=== PATIENT | male | born 1955 | race Caucasian/White ===

== ENCOUNTER 2020-04-16 09:02 | Outpatient (CLI) | payer MEDICARE, SELFPAY ==
[2020-04-16 09:49] LABS: Add Urine Microscopic? NO; Appearance Urine Clear (Clear); Bilirubin Urine Negative (Negative); Blood Urine Negative (Negative); Color Urine Yellow (Yellow); Glucose Urine UA Negative (Negative); Ketones Urine Negative (Negative); Leukocyte Esterase Ur Negative LEU/UL (NEGATIVE); Mucus Urine Rare /lpf; Nitrate Urine Negative (Negative); Protein Urine Negative (Negative); RBC Urine 0-2 /hpf (0-2); Specific Grav Ur 1.018 (1.001-1.035); Squamous Epithelial Cell Urine Rare /hpf (Few); Urobilinogen Urine Negative mg/dL (<2.0); WBC Urine 0-3 /hpf (0-3)
== END 2020-04-16 09:03 | disposition home or self-care (01) ==
PROVIDERS: PCP Family Medicine; Visit Provider Physician Assistant
DX: N39.0 Urinary tract infection, site not specified (principal)
CPT/HCPCS: 81003; 87086

== ENCOUNTER 2020-11-17 09:39 | Emergency (ER) | payer MEDICARE, SELFPAY ==
--- NOTE | ~2020-11-17 | XR_ITS ---
EXAMINATION: XR lumbar spine min 4V DATE: 11/17/2020 10:14 INDICATION: Worsening low back pain TECHNIQUE: Anteroposterior, lateral, and bilateral oblique views of the lumbar spine, and cone-down l ateral view of the lumbosacral junction were obtained. COMPARISON: 08/29/2017 FINDINGS: There is no fracture. There are 4 mm of stable anterolisthesis of L5 on S1. The vertebral b jannette heights are maintained. There is chronic severe loss of intervertebral disc space height at L2-3 and moderate loss of disc space height throughout the remainder of the lumbar spine. There is severe facet osteoarthritis of the lower lumbar spine. A neurostimulator device is implanted in the posterio r subcutaneous tissues on the right. Its leads appear to enter the central spinal canal at the level of L1. IMPRESSION: 1. Severe lumbar spondylosis without acute findings or significant interval change. Reviewed, dictated and finalized at location A. IMPRESSION: 1. Severe lumbar spondylosis without acute findings or significant interval rocío nge.
[2020-11-17 10:59] VITALS: BP 129/87; PULSE 99; RESP 20; TEMP 36.7; O2SAT 98
[2020-11-17 13:00] VITALS: BP 130/80; PULSE 90; RESP 18; O2SAT 100
[2020-11-17] MEDS: diazePAM INJ (*CRX) 10 MG/2 ML SYRINGE 5 MG IM (13:19)
[2020-11-17] MEDS: KETOROLAC (*BKC) 60 MG/2 ML VIAL IM (13:21)
--- NOTE | 2020-11-17 14:10 | ED.BACK ---
HPI - Back Pain/Injury General Chief Complaint: Back Pain/Injury Stated Complaint: back pain Time Seen by Provider: 11/17/20 12:17 Source: patient Mode of arrival: ambulatory Limitations: no limitations History of Present Illness HPI Narrative: This is a 65 year old male that presents to the ER for low back pain x 4 day. No known injury or trauma. Pain is worse with certain movement. Reports history of chronic back problems and multiple surgeries. He has a neurostimulator for pain. He has been taking tyhx-xxe-parnpcy medications as well as [place] for pain. Denies fever, saddle anesthesia, or bowel/bladder incontinence. Related Data Allergies Allergy/AdvReac Type Severity Reaction Status Date / Time No Known Allergies Allergy Unverified 05/13/20 10:16 Review of Systems Review of Systems: Narrative: CONSTITUTIONAL: Denies fever SKIN: Denies rash MUSCULOSKELETAL: Reports back pain, joint pain, and myalgia. NEUROLOGIC: Denies numbness, or weakness. All systems reviewed & are unremarkable except as noted in HPI and below PMFSH Past Medical History Medical History (Updated 11/17/20 @ 14:45 by Wilma Rocha PA-C) Chronic bilateral low back pain Essential hypertension IFG (impaired fasting glucose) Social History Social History (Updated 05/13/20 @ 10:18 by Rose Mary Norton) Smoking status: Never smoker Second hand tobacco smoke exposure: No Alcohol intake: never Substance use: never Substance use type: does not use Gender identity (if verbalized by the patient): Male Exam Narrative: Exam Narrative: GENERAL: Well-appearing, well-nourished, and in no acute distress. HEAD: Normocephalic, atraumatic. EYES: EOMI. CHEST: Clear to auscultation. No respiratory distress. No wheezes rales or rhonchi HEART: Regular rate and rhythm. No murmur heard. Normal peripheral pulses. EXTREMITIES: Normal range of motion. No edema or erythema. Strength equal in bilateral lower extremities (4/5). Normal DP pulses. Normal sensation SKIN: Warm, dry, no rash. NEURO: No focal deficits. Alert and oriented x3. PSYCH: Normal mood and affect Course Consultations Consultation #1: I spoke with his doctor, Dr. Calderon, who agrees with plan and will follow up in clinic. Date: 11/17/20 Time: 14:44 Vital Signs Vital signs: Vital Signs Temperature 98.1 F 11/17/20 10:59 Pulse Rate 99 11/17/20 10:59 Respiratory Rate 20 11/17/20 10:59 Blood Pressure 129/87 11/17/20 10:59 Pulse Oximetry 98 11/17/20 10:59 Temperature 98.1 F 11/17/20 10:59 Pulse Rate 90 11/17/20 13:00 Respiratory Rate 18 11/17/20 13:00 Blood Pressure 130/80 11/17/20 13:00 Pulse Oximetry 100 11/17/20 13:00 MDM - Back Pain/Injury MDM Narrative Medical decision making narrative: Patient presents to the emergency department for low back pain x4 days. He is afebrile and nontoxic-appearing. Vitals are stable. He is neurologically intact. No recent injury or trauma. Lumbar spine x-ray shows severe lumbar spondylosis without acute findings or significant interval change. Patient given dose of Toradol and Valium with improvement. He has an appointment to follow-up with his scene painter in 4 days. I spoke with his doctor, Dr. Calderon, who agrees with plan and will follow up in clinic. Patient is stable and felt appropriate for further outpatient evaluation. He was given warnings to return to the ER Imaging Data Radiologist's impression: ITS Impressions Lumbar Spine X-Ray 11/17/20 10:24 IMPRESSION: 1. Severe lumbar spondylosis without acute findings or significant interval change. Critical Care Time Critical Care Time Critical Care Time: No Discharge Plan Discharge Clinical Impression: Lumbar spondylosis Patient Disposition: Home, Self-Care Condition: Stable Instructions: Lumbar Radiculopathy (ED) Additional Instructions: Return to the ER if you experience fever, weakness, numbness, bowel/blad
== END 2020-11-17 15:00 | disposition home or self-care (01) ==
PROVIDERS: Emergency Provider Emergency Medicine; PCP Family Medicine
DX: M47.816 Spondylosis without myelopathy or radiculopathy, lumbar region (principal); I10 Essential (primary) hypertension
CPT/HCPCS: 72110; 96372; 99284; J1885; J3360

== ENCOUNTER 2021-10-08 08:34 | Outpatient (CLI) | payer MEDICARE, SELFPAY ==
--- NOTE | ~2021-10-08 | CT_ITS ---
EXAMINATION: CT lumbar spine wo con DATE: 10/08/2021 09:05 INDICATION: Worsening low back pain. TECHNIQUE: Computed tomography (CT) of the lumbar spine was performed without intravenous contrast. A utomated exposure control and iterative reconstruction technique were employed. The dose-length produ ct was 1156.89 mGy-cm. COMPARISON: Lumbar spine CT 08/29/2017 FINDINGS: There is 10 degrees dextroscoliosis of lumbar spine. There is 3 mm retrolisthesis of L2 on L3 and L3 on L4 and 4 mm anterolisthesis of L5 on S1. There is a chronic right L5 pars defect. Verteb ral body heights are normal. There is mildly decreased disc height at T12-L1 and L1-L2 and severely d ecreased disc height from L2-L3 through L5-S1 with endplate remodeling. The central spinal canal is d evelopmentally small in lumbar spine. Partially visualized are epidural electrodes. The following dis c levels are specifically discussed: L1-L2: The disc is bulging. There is mild right and severe left facet joint osteoarthritis. There is mild bilateral neural foraminal stenosis. There is mild central canal stenosis. L2-L3: The disc is bulging. There is mild bilateral facet joint osteoarthritis. There is mild right a nd moderate left neural foraminal stenosis. There is mild central canal stenosis. L3-L4: The disc is bulging. There is mild bilateral facet joint osteoarthritis. There is moderate jameel ateral neural foraminal stenosis. There is mild central canal stenosis. L4-L5: The disc is bulging. There is severe bilateral facet joint osteoarthritis. There is moderate b ilateral neural foraminal stenosis. There is mild central canal stenosis. L5-S1: The disc is bulging. There is severe bilateral facet joint osteoarthritis. There is moderate b ilateral neural foraminal stenosis. There is moderate central canal stenosis. IMPRESSION: 1. Severe lumbar spondylosis, mildly worsened from 08/29/2017. 2. Lumbar dextroscoliosis. 3. Chronic right-sided L5 pars defect. Reviewed, dictated and finalized at location A.
== END 2021-10-08 08:35 | disposition home or self-care (01) ==
PROVIDERS: PCP Family Medicine
DX: M99.83 Other biomechanical lesions of lumbar region (principal); M54.16 Radiculopathy, lumbar region; M47.816 Spondylosis without myelopathy or radiculopathy, lumbar region; M41.86 Other forms of scoliosis, lumbar region; M43.8X6 Other specified deforming dorsopathies, lumbar region
CPT/HCPCS: 72131

== ENCOUNTER 2022-03-18 10:30 | Outpatient (RCR) | payer MEDICARE, SELFPAY ==
--- NOTE | 2022-02-24 09:52 | PTOPEVAL1 ---
Assessment and note entered by Robert Perry, PT, DPT Evaluation Information Assessment Status Evaluation Diagnosis neck pain Onset 2-3 months Subjective Information Pt reports neck pain that starts at the base and side of his head. He states his pain is okay in the morning and gets worse as the day progresses. He reports numbness and tingling on the anterior portion of his L shoulder. He states he was given medication that helped for a week, but is not helping much now. He reports a long history of neck pain. Reported Pain Level Pain Score 4: Self Report Assessment PT Clinical Summary presents to therapy today for his initial evaluation with a diagnosis of neck pain. He reports numbness in his shoulder but denies radiating further than this. Today he demonstrates decreased active motion in all planes of motion and a forward head posture in sitting. He has decreased strength in his shoulder jameel as well as poor sitting posture. He also has decreased cervical spine mobility with assessment. Skilled physical therapy services are indicated to address the deficits noted above, to manage pain, and to return to baseline function. Plan of Care Interventions Hot Pack/Cold Pack,Manual Therapy,Neuro Re- education,Patient/Caregiver Educati,Therapeutic Activities,Therapeutic Exercise PT Services Indicated Yes Treatment Frequency and 1-2x/wk for 4 wks Duration These treatments will address the objective and functional deficits as defined above. The patient will be advanced safely and appropriately in order for the patient to progress towards his/her prior level of function. Additional exercises will be introduced and as well as a comprehensive home exercise program upon discharge, if needed, ?to ensure carryover of functional gains achieved in the clinic. This treatment plan has been reviewed and agreement upon by the patient.
--- NOTE | 2022-03-24 14:39 | PCPTNOTE ---
Patient did not show up for scheduled re-evaluation this date. Called and left voicemail for patient to reschedule if needed. If we do not hear from him within the next week he will be discharged.
--- NOTE | 2022-03-24 15:13 | PTOPDC ---
Assessment and note entered by Robert Perry, PT, DPT Evaluation Information Assessment Status Discharge - Pt Not Present Diagnosis neck pain Onset 2-3 months Subjective Information Pt did not show up for his re-evaluation this date . Called patient to follow up. He states he is not rescheduling, that he is doing fine. Assessment PT Clinical Summary completed 4 visits of skilled therapy from 02/24/22 to 03/18/22. He will be discharged at this time. If he needs to return at a later date he will need a new order. Plan of Care Treatment Frequency and to be discharged Duration
== END 2022-03-25 16:35 | disposition home or self-care (01) ==
LOC: ANHGOSHPT 10:30
PROVIDERS: PCP Family Medicine; Visit Provider Physician Assistant
DX: M54.2 Cervicalgia (principal); M62.838 Other muscle spasm
CPT/HCPCS: 97110; 97112; 97140; 97161; 99199

== ENCOUNTER 2022-04-07 08:20 | Outpatient (CLI) | payer MEDICARE, SELFPAY ==
--- NOTE | ~2022-04-07 | XR_ITS ---
EXAMINATION:XR cervical spine min 6V DATE: 04/07/2022 08:44 INDICATION: Neck pain TECHNIQUE: AP, lateral in neutral, flexion, extension, bilateral oblique, lateral swimmers and odonto id views of the cervical spine are provided. COMPARISON: 08/29/2017 FINDINGS: There are 2 mm of chronic anterolisthesis of C4 on C5. No laxity is present with flexion or extension. There is severe loss of intervertebral disc space height at C5-6, C6-7, and C7-T1. The od ontoid is intact. No fracture is identified. The vertebral body heights are normal. There is moderate to severe multilevel facet and uncovertebral joint osteoarthritis. There is moderate neuroforaminal stenosis on the left at C4-5, C5-6, and C6-7. Prevertebral soft tissues are normal. Small degenerativ e osteophytes project from the anterior endplates of multiple vertebral bodies. IMPRESSION: 1. Severe cervical spondylosis without acute findings or significant interval change. Reviewed, dictated and finalized at location B. CIATE ENTERTAINMENT EDITOR
== END 2022-04-07 08:21 | disposition home or self-care (01) ==
PROVIDERS: PCP Family Medicine; Visit Provider Physician Assistant
DX: M54.2 Cervicalgia (principal); M43.02 Spondylolysis, cervical region
CPT/HCPCS: 72052

== ENCOUNTER → 2022-06-29 10:19 | Outpatient (CLI) | payer MEDICARE, SELFPAY ==
--- NOTE | ~2022-06-29 | CT_ITS ---
EXAMINATION: CT cervical spine wo con DATE: 06/29/2022 11:11 INDICATION: Neck pain. TECHNIQUE: Computed tomography (CT) of the cervical spine was performed without intravenous contrast. Automated exposure control and iterative reconstruction technique were employed. The dose-length pro duct was 400.65 mGy-cm. COMPARISON: CT cervical spine 08/29/2017 FINDINGS: There is mild mucosal thickening in the paranasal sinuses. There is 6 degrees levocurvature of cervical spine. There is 2 mm anterolisthesis of C3 on C4 and C4 on C5. Vertebral body heights ar e normal. There is mildly decreased disc height at C4-C5 and severely decreased disc height from C5-C 6 through C7-T1. The following disc levels are specifically discussed: C2-C3: There is mild bilateral uncovertebral joint osteoarthritis. There is moderate right and mild l eft facet joint osteoarthritis. There is no neural foraminal stenosis. There is no central canal sten osis. C3-C4: There is mild bilateral uncovertebral joint osteoarthritis. There is moderate right and severe left facet joint osteoarthritis. There is mild bilateral neural foraminal stenosis. There is mild ce ntral canal stenosis. C4-C5: There is mild bilateral uncovertebral joint osteoarthritis. There is mild right and severe lef t facet joint osteoarthritis. There is moderate left neural foraminal stenosis. There is mild central canal stenosis. C5-C6: There is severe bilateral uncovertebral joint osteoarthritis. There is mild bilateral facet kierra int osteoarthritis. There is mild bilateral neural foraminal stenosis. There is mild central canal st enosis. C6-C7: There is severe bilateral uncovertebral joint osteoarthritis. There is mild bilateral facet kierra int osteoarthritis. There is mild bilateral neural foraminal stenosis. There is mild central canal st enosis. C7-T1: There is severe right and moderate left uncovertebral joint osteoarthritis. There is severe bi lateral facet joint osteoarthritis. There is moderate bilateral neural foraminal stenosis. There is m ild central canal stenosis. IMPRESSION: 1. Severe cervical spondylosis, stable from 08/29/2017. Reviewed, dictated and finalized at location A. RIOR SPECIALIST
== END ==
PROVIDERS: PCP Family Medicine
DX: M54.12 Radiculopathy, cervical region (principal); M99.81 Other biomechanical lesions of cervical region; M43.02 Spondylolysis, cervical region
CPT/HCPCS: 72125

== ENCOUNTER 2023-12-27 12:34 | Outpatient (CLI) | payer MEDICARE, SELFPAY ==
--- NOTE | 2023-12-27 14:15 | NEURO_ITS ---
Impression: # Complains of numbness of hands, left more than right. # Mild evolving sensory Carpal Tunnel Syndrome, left more than right. # Left median slowing proximally; Not diagnostic but consider the possibility of Pronator Teres Syndrome. # Needle/EMG exam not neurogenic. Nerve Conduction Studies Anti Sensory Summary Table Stim Site NR Peak (ms) P-T Amp (?V) Site1 Site2 Delta-P (ms) Dist (cm) Satya (m/s) Left Median Anti Sensory (2-3nd Digit) NO RESPONSE Wrist NR Wrist 2-3nd Digit 14.0 Wrist NR Wrist 2-3nd Digit 14.0 Right Median Anti Sensory (2-3nd Digit) Wrist 3.7 21.9 Wrist 2-3nd Digit 3.7 14.0 38 Wrist 5.3 18.7 Wrist 2-3nd Digit 3.7 14.0 38 Left Radial Anti Sensory (Base 1st Digit) Wrist 2.2 16.1 Wrist Base 1st Digit 2.2 0.0 Right Radial Anti Sensory (Base 1st Digit) Wrist 2.6 17.3 Wrist Base 1st Digit 2.6 0.0 Left Ulnar Anti Sensory (5th Digit) Wrist 2.6 21.6 Wrist 5th Digit 2.6 14.0 54 Right Ulnar Anti Sensory (5th Digit) Wrist 2.5 15.5 Wrist 5th Digit 2.5 14.0 56 Motor Summary Table Stim Site NR Onset (ms) O-P Amp (mV) Site1 Site2 Delta-0 (ms) Dist (cm) Satya (m/s) Left Median Motor (Abd Poll Brev) Wrist 3.5 1.4 Elbow Wrist 6.7 31.0 46 Elbow 10.2 1.3 Right Median Motor (Abd Poll Brev) Wrist 3.8 2.6 Elbow Wrist 6.1 31.0 51 Elbow 9.9 2.4 Left Ulnar Motor (Abd Dig Minimi) Wrist 3.0 4.3 A Elbow Wrist 5.6 31.0 55 A Elbow 8.6 3.1 Right Ulnar Motor (Abd Dig Minimi) Wrist 2.3 4.9 A Elbow Wrist 5.4 31.0 57 A Elbow 7.7 3.5 F Wave Studies NR F-Lat (ms) L-R F-Lat (ms) Left Median (Mrkrs) (Abd Poll Brev) 33.09 0.64 Right Median (Mrkrs) (Abd Poll Brev) 32.44 0.64 Left Ulnar (Mrkrs) (Abd Dig Min) 30.28 0.55 Right Ulnar (Mrkrs) (Abd Dig Min) 30.83 0.55 EMG Side Muscle Nerve Root Ins Act Fibs Amp Dur Recrt Comment Right 1stDorInt Ulnar C8-T1 Nml Nml Nml Nml Nml Right Ext Indicis Radial (Post Int) C7-8 Nml Nml Nml Nml Nml Right Ext Digitorum Radial (Post Int) C7-8 Nml Nml Nml Nml Nml Right BrachioRad Radial C5-6 Nml Nml Nml Nml Nml Right PronatorTeres Median C6-7 Nml Nml Nml Nml Nml Right Abd Poll Brev Median C8-T1 Nml Nml Nml Nml Nml Right ABD Dig Min Ulnar C8-T1 Nml Nml Nml Nml Nml Left 1stDorInt Ulnar C8-T1 Nml Nml Nml Nml Nml Left Ext Indicis Radial (Post Int) C7-8 Nml Nml Nml Nml Nml Left Ext Digitorum Radial (Post Int) C7-8 Nml Nml Nml Nml Nml Left BrachioRad Radial C5-6 Nml Nml Nml Nml Nml Left PronatorTeres Median C6-7 Nml Nml Nml Nml Nml Left Abd Poll Brev Median C8-T1 Nml Nml Nml Nml Nml Left ABD Dig Min Ulnar C8-T1 Nml Nml Nml Nml Nml MTDD
== END 2023-12-27 12:35 | disposition home or self-care (01) ==
LOC: ANHNEURO 12:39
PROVIDERS: PCP Family Medicine; Visit Provider Physician Assistant
DX: G56.03 Carpal tunnel syndrome, bilateral upper limbs (principal); R29.898 Other symptoms and signs involving the musculoskeletal system
CPT/HCPCS: 95886; 95911

== ENCOUNTER 2024-02-24 12:53 | Outpatient (CLI) | payer MEDICARE, SELFPAY ==
--- NOTE | 2024-02-24 13:02 | ECG_ITS ---
Test Date: 2024-02-24 13:24:48 Measurements Intervals Shushan Rate: 90 P: 60 MA: 144 QRS: 9 QRSD: 98 T: 57 QT: 355 QTc: 435 Interpretive Statements SINUS RHYTHM BASELINE ARTIFACT- I, II, III, AVR, AVL, AVF, V4 NORMAL ECG No previous ECG available for comparison Electronically Signed On 02-24-2024 13:28:54 CDT by Jules Hernández D.O.
== END 2024-02-24 12:54 | disposition home or self-care (01) ==
LOC: ANHSURGERY 12:56
PROVIDERS: PCP Family Medicine; Visit Provider Surgery
DX: Z01.818 Encounter for other preprocedural examination (principal); I10 Essential (primary) hypertension; K40.20 Bilateral inguinal hernia, without obstruction or gangrene, not specified as recurrent
CPT/HCPCS: 36415; 86850; 86900; 86901; 93005

== ENCOUNTER 2024-02-28 00:59 | Day surgery (SDC) | payer MEDICARE, SELFPAY ==
[2024-02-24 09:16] VITALS: BMI 27.9
--- NOTE | 2024-02-24 09:33 | PC.NURSE ---
Report to the Outpatient Waiting Room, entrance under the green pavilion located off [facility], at time ___10:30AM____ on date ____02/28/24___. Planned Procedure Time: ___12:30PM .? Time changes happen often and if your time is changed the preop area will call you the afternoon before. - You and your visitor will be asked to self-screen and do not enter if you have any COVID symptoms. Please call surgeon if you need to reschedule. - A mask is optional within the hospital at this time. Patients may have clear liquids (water, carbonated beverages, clear teas, apple juice) until 3 hours prior to surgery with a maximum of 20 ounces. - No food from midnight until time of surgery and no smoking. Take only the following medications with a SIP of water on the morning of surgery: AMLODIPINE DO NOT STOP ANY OF YOUR OTHER PRESCRIPTION MEDICATIONS PRIOR TO SURGERY EXCEPT THE FOLLOWING Medications to discontinue per physician NONE Date to take last dose Please no make-up, nail bulgarian, hairspray, perfume, deodorant, or body powder the day of surgery.? No jewelry (including any body piercings) or valuables the day of surgery, leave them at home.? Please take a shower or bath the night before, or the morning of, surgery with an antibacterial soap.? Wear comfortable, loose fitting clothing.? - Jewelry must be removed prior to entering the operating room.? Rings and piercings that are not removed may be cut off. - The hospital will not accept responsibility for valuables.? - Please leave all valuables, including medications, at home the day of surgery. If you are going home after surgery, a licensed local owner operator truck driver must drive you home.? - NO public transportation without another adult if you receive anesthesia. - We recommend that an adult stay with you for 24 hours following discharge. - We also recommend that you do not drive, make important decision, drink alcoholic beverages, or take any drugs that were not prescribed by your health care provider for at least 24 hours after your discharge time. Follow any additional instructions given to you from your surgeon. Telephone instructions given to ____PATIENT and asked if any additional questions and then verbalized understanding. Patient advised to call surgeon office or pre surgery nurse liaison [phone] if any additional questions.
[2024-02-28] VITALS (12 sets, daily range): BP systolic 110–125; BP diastolic 70–81; PULSE 86–102; RESP 12–18; TEMP 36–36.7; O2SAT 91–100; BMI 27.8
[2024-02-28] MEDS: KETOROLAC 15 MG/ML VIAL (*BKC) IV PUSH (11:11)
[2024-02-28] MEDS: ACETAMINOPHEN 500 MG TABLET 1000 MG PO (11:12)
[2024-02-28] MEDS: LACTATED RINGERS 1,000 ML 30 ML IV CONT ×2 (11:20→16:45)
--- NOTE | 2024-02-28 12:24 | WPDHPUPDATE1 ---
History and Physical Update Update Date/Time: 02/28/24 12:24 History and Physical has been reviewed, including an updated exam of the patient. There are NO changes in the patient's condition. Risks, benefits, and alternatives have been discussed and questions answered. Patient agrees to proceed with procedure.
--- NOTE | 2024-02-28 12:42 | P.PNAN_ITS ---
Anes - Initial Pre Proc Eval Procedure: Operation Date: 02/28/24 12:30 Proposed Procedures p Robotic Assisted Laparoscopic Bilateral Inguinal Hernia Repair with Mesh - Stalin Lopez MD s Open Umbilical Hernia Repair without Mesh - Stalin Lopez MD Date/Time: 02/28/24 12:42 Surgeon: Stalin Lopez MD Pre Op Diagnosis: Jin Reduc Ing Hernia, Sm Reduc Umb Hernia Patient Data Age: 68 Gender: M Height: 1.8 m Weight: 90.5 kg Last Vital Signs Temp 97.5 F L 02/28/24 11:00 Pulse 91 02/28/24 11:00 Resp 18 02/28/24 11:00 BP 114/81 02/28/24 11:00 Pulse Ox 97 02/28/24 11:00 Allergies Allergy/AdvReac Type Severity Reaction Status Date / Time No Known Allergies Allergy Verified 02/24/24 09:14 Home Medications Medication Instructions Recorded Confirmed Type amlodipine 5 mg tablet See Rx Instructions .Route 08/04/23 02/24/24 Rx .COMPLEX #90 tabs lisinopril 20 mg tablet See Rx Instructions .Route 08/04/23 02/24/24 Rx .COMPLEX #90 tabs Patient hx anesthesia problems: none Family hx anesthesia problems: none Results Review: All pre-operative results and documents have been reviewed as part of the pre- operative evaluation. [facility] Past Medical History Medical History Chronic bilateral low back pain Essential hypertension IFG (impaired fasting glucose) Surgical History Surgical History History of back surgery Social History Social History Smoking status: Never smoker Second hand tobacco smoke exposure: No Alcohol intake: never Substance use: never Substance use type: does not use Living arrangements: with family Additional living arrangements comments: [place] Occupation/Education: retired Gender identity (if verbalized by the patient): Male Spiritual care concerns: No Anes - Eval Final PreProcedure Day of Procedure 02/28/24 12:42 Patient weight: normal Heart: regular rate and rhythm Lungs: clear to auscultation Airway: Mallampati scale Neurological: alert and oriented Last oral intake: >/= 8 hours ASA classification: II Emergent: no Anesthetic plan: proceed Anesthesia type and monitoring: general ETT and standard monitoring Results Review: All pre-operative results and documents have been reviewed as part of the pre- operative evaluation. HTN, no cp or sob. Pt has back stim that is currently turned off. Informed Consent: The patient's anesthetic plan and its attendant risks and benefits were discussed with the patient/family/POA. Questions were solicited and answers provided to the satisfaction of the patient/family/POA.
[2024-02-28] MEDS: ceFAZolin 2 GM/D5W 50 ML 2 GM/50 ML BAG IVPB (12:55)
[2024-02-28] MEDS: LIDO 1%/EPINEPHRINE 1:100,000 50 ML VIAL 30 ML INFILTRATE (14:09)
[2024-02-28] MEDS: BUPivacaine HCL 0.5% PF 30 ML VIAL INFILTRATE (14:10)
--- NOTE | 2024-02-28 16:43 | W.PM.PROC2 ---
Procedure Note - Detailed Date of Procedure 02/28/24 Pre-op Diagnosis Jin Reduc Ing Hernia, Sm Reduc Umb Hernia Post-op Diagnosis Same Procedure Performed Robotic assisted laparoscopic bilateral inguinal hernia repairs with Bard 3D mid weight mesh. Open umbilical hernia repair without mesh. Surgeon Stalin Lopez MD Life Claims Examiner Lucho Choi, [place] Anesthesia General Indications Patient is a 68-year-old gentleman who presented with complaints of a bulge in the left groin region. On examination had to be the reduced total moderately large left inguinal hernia. Also on exam he had an asymptomatic right inguinal hernia only with Valsalva. He also had other small reducible umbilical hernia. He presents now for robotic assisted laparoscopic bilateral inguinal hernia repairs with mesh and an open umbilical hernia repair without mesh. Findings Patient on a small reducible umbilical hernia. Defect was 1 cm in diameter. This was closed primarily with suture. The out bilateral direct inguinal hernias without any incarcerated contents. The patient had a large prostate gland which impeded the placement of a standard Estrada catheter. A Coude urinary catheter had to be placed to adequately decompress the bladder. Due to the difficulty in passing the urinary catheter and the trauma associated with the passing of the catheter there was hematuria initially noted and it persisted with significant hematuria at the end of the procedure. For this reason the Estrada catheter was left in place overnight and the patient was admitted for extended outpatient recovery overnight to make sure that he would not go home and how bladder outlet obstruction from clot in his bladder. Description of Procedure After informed consent was obtained the patient was brought to the operating room was placed in supine position and general endotracheal anesthesia was administered. The patient had a clinical history of enlarged prostate gland due to having significant nocturia. He had get up 3-4 times a night to go urinate. For this reason a urinary catheter was placed to make sure the bladder was decompressed during the surgery. There is difficulty in passing a Estrada catheter and so eventually a coude catheter had to be placed. Due to the difficulty in placing the coude catheter there was significant hematuria once the catheter was placed. A time-out was then performed identifying the patient as well as the procedure to be performed. He was given preoperative IV antibiotics. I then entered the abdomen and the left upper quadrant utilizing a 10 mm Optiview port. Once inside the abdomen insufflated to act a pneumoperitoneum 15 mm Hg SaO2. There were no adhesions to obscure my view of the pelvis on the groin regions. The patient was in placed and 15 degree Trendelenburg position with the head down. This allowed the bowel to fall away from the inguinal regions and the pelvis. I then placed additional 8 mm robotic trocar ports across the mid abdomen. The umbilical trocar port was placed to the patient's small umbilical hernia defect. I could easily see that there were bilateral large direct inguinal hernias without incarcerated contents. The Cardiostrong robot was then brought to the patient's bedside and docked to the patient's right side. The robotic arms were then attached to the robotic ports. Robotic instruments were then advanced into the abdomen without difficulty under direct visualization. I then scrubbed out of the procedure and sat down at the console to perform the dissection robotically. A preperitoneal flap was then made across the lower abdominal region extending from the right anterior superior iliac spine to the left anterior superior iliac spine. And then continued my dissection of the preperitoneal plane dividing the right and left median umbilical ligaments to take down the bladder. The peritoneal flap was then bisected down to the pubic tubercle bilaterally. There is no evidence
[2024-02-28] MEDS: fentaNYL CITRATE INJ (*CRX) 100 MCG/2 ML VIAL 25 MCG IV PUSH ×5 (17:32→17:51)
[2024-02-28] MEDS: LACTATED RINGERS 1,000 ML 120 ML IV CONT (18:32)
[2024-02-28] MEDS: TAMSULOSIN HCL 0.4 MG CAPSULE PO (18:33)
[2024-02-28] MEDS: HYDROcodone/acetaminophen (*CRX) 5-325 MG TABLET 1 TAB PO (18:41)
--- NOTE | 2024-02-28 18:45 | PC.NURSE ---
This patient, Richard Schmid, was admitted to [facility] Surg Room 331-02. Patient/family oriented to hospital policies and general routines including ID bracelet, bed and alarms, visiting hours, pain management, procedures, bathroom and other care routines, personal items, smoking policy, room service/diet, and visiting hours. Information on how to activate the Rapid Response Team has been discussed. Patient/Family are encouraged to report perceived risks to care and to ask questions if they do not understand what they are told or what they should do.
--- NOTE | 2024-02-28 18:50 | ADMGEN ---
This patient, Richard Schmid, was admitted to [facility] Surg Room 331-02. Patient/family oriented to hospital policies and general routines including ID bracelet, bed and alarms, visiting hours, pain management, procedures, bathroom and other care routines, personal items, smoking policy, room service/diet, and visiting hours. Information on how to activate the Rapid Response Team has been discussed. Patient/Family are encouraged to report perceived risks to care and to ask questions if they do not understand what they are told or what they should do.
[2024-02-29] VITALS: BP 107/70; PULSE 86; RESP 18; TEMP 36.9; O2SAT 93
[2024-02-29 03:10] VITALS: BP 100/65; PULSE 89; RESP 18; TEMP 37; O2SAT 95
[2024-02-29 08:36] VITALS: BP 108/67; PULSE 84; RESP 18; TEMP 36.8; O2SAT 96
[2024-02-29] MEDS: amLODIPine BESYLATE 5 MG TABLET BY MOUTH (08:58)
[2024-02-29] MEDS: TAMSULOSIN HCL 0.4 MG CAPSULE PO (08:59)
[2024-02-29] MEDS: lisinopriL 20 MG TABLET BY MOUTH (08:59)
[2024-02-29] MEDS: HYDROcodone/acetaminophen (*CRX) 5-325 MG TABLET 1 TAB PO (09:00)
--- NOTE | 2024-02-29 11:05 | PM.PNGS ---
Progress Note: A&P Assessment and Plan (1) Bilateral inguinal hernia without obstruction or gangrene: Qualifiers: Recurrence: non-recurrent Qualified Code(s): K40.20 - Bilateral inguinal hernia, without obstruction or gangrene, not specified as recurrent Code(s): K40.20 - Bilateral inguinal hernia, without obstruction or gangrene, not specified as recurrent Status: Acute Assessment and Plan: S/p robotic assisted laparoscopic bilateral inguinal hernia repair with mesh. He was kept for observation overnight due to hematuria as mentioned below. Tolerating a regular diet. Encouraged getting up to chair and ambulating in the halls today. (2) Umbilical hernia without mention of obstruction or gangrene: Code(s): K42.9 - Umbilical hernia without obstruction or gangrene Status: Acute Assessment and Plan: Small umbilical hernia closed primarily with suture (3) Enlarged prostate: Code(s): N40.0 - Benign prostatic hyperplasia without lower urinary tract symptoms Status: Acute Assessment and Plan: Large prostate with difficulty placing his urinary catheter during surgery yesterday. They were able to get a Coude catheter inserted, but he had hematuria after placement due to the trauma of catheter placement. Catheter kept in place overnight. Started on tamsulosin. Since he is still having hematuria today, we will consult Urology for further recommendations. (4) Hematuria: Code(s): R31.9 - Hematuria, unspecified Status: Acute Assessment and Plan: Continue indwelling urinary catheter. Consult Urology. Plan I have discussed the patient's case and plan of care with Dr. Lopez. Subjective Subjective Date/Time Seen: 02/29/24 11:05 Post Op day: 1 (Robotic assisted laparoscopic bilateral inguinal hernia repairs with Bard 3D mid weight mesh) Patient reports: tolerating a regular diet Interval history: Patient in extended stay recovery postop laparoscopic bilateral inguinal hernia repair, umbilical hernia repair due to hematuria. He had a coude catheter placed during surgery, which was difficult. He had hematuria that persisted even following the case, therefore the catheter was left in place and he was kept overnight for monitoring. This morning, there is still a fair amount of blood in the urine with small clots in the tubing. Exam Const: General: comfortable and no acute distress Orientation/consciousness: patient oriented x3 GI: Inspection: non-distended and incision (incisions dry and glue intact) GI Palp: Yes Soft to palpation and Yes Tenderness to palpation present (GI) (incisional) Auscultation: Hypoactive bowel sounds present : Penis: Yes normal penis Scrotum: scrotum normal (scrotal support in place) Urinary Catheter: Urinary Catheter: patent and draining and urine red Objective Data Vital Signs Vital Signs: Vital Signs - 24 hr 02/28/24 16:45 02/28/24 17:00 02/28/24 17:15 Temperature 97.3 F L Pulse Rate 102 H 94 86 Respiratory Rate 12 14 Blood Pressure 125/75 117/77 Pulse Oximetry 100 94 100 Oxygen Delivery Simple Face Mask Simple Face Mask Simple Face Mask Oxygen Flow Rate 8 8 8 02/28/24 17:30 02/28/24 17:45 02/28/24 18:00 Temperature 97.4 F L Pulse Rate 88 94 93 Respiratory Rate 14 15 16 Blood Pressure 124/79 116/79 117/76 Pulse Oximetry 96 94 94 Oxygen Delivery Room Air Room Air Room Air Oxygen Flow Rate 02/28/24 18:10 02/28/24 18:30 02/28/24 18:45 Temperature 96.8 F L 96.9 F L Pulse Rate 92 91 87 Respiratory Rate 15 16 18 Blood Pressure 114/76 110/72 110/70 Pulse Oximetry 93 93 91 Oxygen Delivery Room Air Oxygen Flow Rate 02/28/24 19:15 02/28/24 20:15 02/29/24 00:00 Temperature 98.1 F 97.6 F 98.5 F Pulse Rate 90 89 86 Respiratory Rate 18 18 18 Blood Pressure 112/76 125/78 107/70 Pulse Oximetry 93 94 93 Oxygen Delivery Oxygen Flow Rate 02/29/24 03:10 02/29/24 08:36 02/29/24 09
--- NOTE | 2024-02-29 12:37 | WPDURCON ---
Assessment and Plan Assessment and plan (1) Hematuria: Code(s): R31.9 - Hematuria, unspecified Status: Acute Assessment and Plan: Likely secondary to trauma from Estrada catheterization. Urine is significantly cleared at this time. Okay for Estrada catheter removal and will ensure he is voiding well following. (2) Enlarged prostate: Code(s): N40.0 - Benign prostatic hyperplasia without lower urinary tract symptoms Status: Acute Assessment and Plan: Resulting in difficult Estrada catheter placement. He has been started on tamsulosin and will continue this following discharge. Will arrange outpatient follow-up in several weeks to reassess symptoms and check PVR. Urology Consult Note HPI Date Seen: 02/29/24 Requesting Physician: Stalin Lopez MD Primary Care Provider: Zach Rosen MD Consult Narrative Narrative: Richard Schmid is a 68 year old male who underwent robotic assisted laparoscopic bilateral inguinal hernia repair on 02/28/2024. He is being seen in consultation for hematuria. At the start of surgery, a Estrada catheter was placed to ensure bladder was decompressed during surgery. It was noted that there was difficulty passing a Estrada catheter due to an enlarged prostate, therefore was transitioned to a coude catheter which was able to be successfully placed. He was noted to have hematuria following Estrada placement secondary to trauma from catheter attempt. Catheter was continued overnight and today patient noted to have persistent hematuria. He was started on tamsulosin. At the time of my evaluation, the patient's catheter is draining freely with return of light pink tinged urine. He denies suprapubic pain, pressure, fullness, pelvic pain. Prior to surgery, the patient reports that he has had nocturia but otherwise no significant lower urinary tract symptoms. He has not seen a urologist in the past for evaluation of BPH and has not been on medications. He has no concerns at this time. Review of Systems Review of Systems: All systems reviewed & are unremarkable except as noted in HPI and below PMFSH Past Medical History Medical History Chronic bilateral low back pain Essential hypertension IFG (impaired fasting glucose) Surgical History Surgical History History of back surgery Social History Social History Smoking status: Never smoker Second hand tobacco smoke exposure: No Alcohol intake: never Substance use: never Substance use type: does not use Do You Feel Safe in your Home?: Yes Lack of Transportation: No Lack of Food: Never True Current Housing: I Have Housing Concerned About Future Housing: No Difficulty Paying Gas/Electric Bills: No Difficulty Paying for Meds: No Currently Unemployed: No Education: Bachelor's Degree Difficulty w/ Childcare or Family Care: No Living arrangements: with family Additional living arrangements comments: [employer] Occupation/Education: retired Gender identity (if verbalized by the patient): Male Spiritual care concerns: No Meds Home Medications and Allergies Home Medications Medication Instructions Recorded Confirmed Type amlodipine 5 mg tablet See Rx Instructions .Route 08/04/23 02/24/24 Rx .COMPLEX #90 tabs lisinopril 20 mg tablet See Rx Instructions .Route 08/04/23 02/24/24 Rx .COMPLEX #90 tabs Allergies Allergy/AdvReac Type Severity Reaction Status Date / Time No Known Allergies Allergy Verified 02/24/24 09:14 Vital Signs Vital Signs - 24 hr 02/28/24 16:45 02/28/24 17:00 02/28/24 17:15 Temperature 97.3 F L Pulse Rate 102 H 94 86 Respiratory Rate 12 14 Blood Pressure 125/75 117/77 Pulse Oximetry 100 94 100 Oxygen Delivery Simple Face Mask Simple Face Mask Simple
--- NOTE | 2024-02-29 15:35 | PM.DS ---
DS: Admitting Diagnosis Discharge Date 02/29/2024 Admitting Diagnosis Umbilical hernia Bilateral inguinal hernias DS: Discharge Diagnosis Discharge Diagnosis (1) Bilateral inguinal hernia without obstruction or gangrene: Qualifiers: Recurrence: non-recurrent Qualified Code(s): K40.20 - Bilateral inguinal hernia, without obstruction or gangrene, not specified as recurrent Code(s): K40.20 - Bilateral inguinal hernia, without obstruction or gangrene, not specified as recurrent Status: Acute (2) Umbilical hernia without mention of obstruction or gangrene: Code(s): K42.9 - Umbilical hernia without obstruction or gangrene Status: Acute (3) Enlarged prostate: Code(s): N40.0 - Benign prostatic hyperplasia without lower urinary tract symptoms Status: Acute (4) Hematuria: Code(s): R31.9 - Hematuria, unspecified Status: Acute DS: Summary Hospital Course Reason for hospitalization: This is a 68-year-old man who presented with complaints of a bulge in his left groin region as an outpatient. He was found to have bilateral inguinal hernias and a small reducible umbilical hernia on exam. He presented yesterday for a robotic assisted laparoscopic bilateral inguinal hernia repair with mesh and an open umbilical hernia repair without mesh. Hospital Course: Patient underwent robotic assisted laparoscopic bilateral inguinal hernia repairs with mesh, open umbilical hernia repair without mesh on 02/28/[address] Huang. When attempting indwelling urinary catheter placement for surgery, he was found to have a large prostate gland which impeded placement of a standard Estrada catheter. The Mili ventrally able to place a coude urinary catheter to decompress the bladder, although due to the difficulty of passing the catheter and trauma associated with this, he had hematuria initially after placement that persisted throughout surgery. Therefore, the q.day urinary catheter was left in place and he was admitted for extended outpatient recovery overnight to make sure that he would not go home and have bladder outlet obstruction from clots in his bladder. This morning, the patient was tolerating a diet and able to tolerate activity. He continued to have hematuria this morning, and urology was consulted for their recommendations. He was started on Flomax and Levsin p.r.n. for bladder spasms. Urology removed his urinary catheter for a voiding trial. Patient was able to void following catheter removal and is stable for discharge this afternoon. He will be discharged home on Flomax with outpatient follow-up with Urology. He will also follow up as scheduled with Dr. Huang. Status at Discharge Functional status at discharge: independent ambulation Overall status at discharge: patient is progressing back to baseline Time Spent with Patient Time attestation: Total time spent providing and/or coordinating discharge services: Time spent: Greater than 30 minutes DS: Data Procedures/Treatments: Procedures Operation Date: 02/28/24 12:30 Actual Procedure Side Surgeon p Robotic Assisted Laparoscopic Bilateral Inguinal Hernia Repair with Mesh Bilateral Stalin Huang MD s Open Umbilical Hernia Repair without Mesh Not Applicable Stalin Huang MD Discharge Plan Discharge Patient Disposition: Home, Self-Care Discharge Instructions: DISCHARGE INSTRUCTIONS FOR DR. HUANG May shower in 24 hours, no soaking in bath x 2weeks. Wear your abdominal binder when up in the chair and with activity. May remove the abdominal binder at night while at rest and to shower. Wear scrotal support for at least the first 48 hours No lifting more than 10 lbs until instructed differently by your surgeon in follow-up Walk at least three times daily. Stairs are okay. No fast/jerky movements No driving for 3 days or while taking narcotic pain medication Take Tylenol and/or Ibuprofen as needed for pain. Narcotic pain medication w
[2024-02-29 16:05] VITALS: BP 130/56; PULSE 88; RESP 18; TEMP 36.8; O2SAT 100
== END 2024-02-29 16:40 | disposition home or self-care (01) ==
LOC: ANHSURGERY 10:30 → ANH3MEDSUR 18:21
PROVIDERS: PCP Family Medicine; Visit Provider Surgery
PROC: 8E0Y4CZ Robotic Assisted Procedure of Lower Extremity, Percutaneous Endoscopic Approach (ICD-10-PCS; CPT 49650; principal; 2024-02-28 12:30)
PROC: (CPT 49591; 2024-02-28 12:30)
DX: K40.20 Bilateral inguinal hernia, without obstruction or gangrene, not specified as recurrent (principal); K42.9 Umbilical hernia without obstruction or gangrene; I10 Essential (primary) hypertension; N40.0 Benign prostatic hyperplasia without lower urinary tract symptoms; R31.9 Hematuria, unspecified; M54.50 Low back pain, unspecified; G89.29 Other chronic pain; G89.18 Other acute postprocedural pain; Z98.890 Other specified postprocedural states; Z98.1 Arthrodesis status
CPT/HCPCS: 49591; 49650; S2900; 36415; 86850; 86900; 86901; 93005; A9270; C1781; J0690; J1100; J1171; J1885; J2003; J2004; J2250; J2405; J2704; J3010; J7120

== ENCOUNTER 2024-03-01 16:27 | Emergency (ER) | payer MEDICARE, SELFPAY ==
--- NOTE | ~2024-03-01 | CT_ITS ---
EXAMINATION: CT abdomen pelvis w con DATE: 03/01/2024 19:29 INDICATION: Abdominal pain. TECHNIQUE: Computed tomography (CT) of the abdomen and pelvis was performed with 100 mL Omnipaque 350 intravenous contrast. Automated exposure control and iterative reconstruction technique were employe d. The dose-length product was 574.89 mGy-cm. COMPARISON: CT abdomen and pelvis 11/13/2012 FINDINGS: The visualized portions of the lung bases demonstrate mild atelectasis. No pleural effusion . The heart size is normal. No pericardial effusion. There are coronary artery calcifications. The li benjamin, gallbladder, spleen, pancreas, adrenal glands, and left kidney are normal. There is a 10 mm cyst in right kidney. The prostate is moderately enlarged. There are no dilated loops of bowel. The appen delmis is normal. There are no pathologically enlarged lymph nodes. There is no free intraperitoneal flu id. There are changes of bilateral inguinal hernia repairs. There is free intraperitoneal gas and gas in the body wall, consistent with recent surgery. There is gas in the bladder lumen, likely from rec ent instrumentation. Epidural electrodes are noted. There is mild thoracic spondylosis and severe lum bar spondylosis. IMPRESSION: 1. Changes of bilateral inguinal hernia repairs. Reviewed, dictated and finalized at location A.
[2024-03-01 16:35] VITALS: BP 150/93; PULSE 111; RESP 18; TEMP 36.6; O2SAT 95
[2024-03-01 16:50] LABS: Basophils Percent Auto 0.4 % (0.2-1.2); Eosinophils Percent Auto 0.1 % (0-4.4); Hematocrit 46.7 % (42.0-52.0); Hemoglobin 16.5 g/dL (14.0-18.0); Immature Granulocyte Absolute 0.03 K/mm3 (0.00-0.031); Immature Granulocyte Percent A 0.3 % (0-0.5); Lymphocytes Absolute Auto 0.92 K/mm3 (0.9-3.2); Lymphocytes Percent Auto 8.1 % (18.3-44.2); Mean Corpuscular HGB Conc 35.3 g/dl (32-36); Mean Corpuscular Volume 87.6 fl (80-100); Mean Platelet Volume 8.8 fl (7.4-10.4); Monocytes Absolute Auto 0.6 K/mm3 (0.1-0.6); Monocytes Percent Auto 5.2 % (2.6-8.5); Neutrophils Absolute Auto 9.7 K/mm3 (1.3-6.7); Neutrophils Percent Auto 85.9 % (45.5-73.1); Platelet Count Result 258 k/mm3 (150-375); Red Blood Count 5.33 M/mm3 (4.6-6.20); Red Cell Distribution Width 13.2 % (11.5-14.5); White Blood Count 11.3 K/mm3 (4.5-10.0)
[2024-03-01 17:02] LABS: Alanine Aminotransferase 20 U/L (6-50); Albumin Level 4.5 g/dL (3.5-5.1); Alkaline Phosphatase 56 U/L (38-126); Anion Gap 10 mmol/L (4-12); Aspartate Amino Transferase 28 U/L (17-59); Bilirubin,Total 0.9 mg/dL (0.2-1.3); Blood Urea Nitrogen 22 mg/dL (9-20); Calcium 8.7 mg/dL (8.4-10.2); Carbon Dioxide 23 mmol/L (22-30); Chloride 105 mmol/L (98-107); Estimated CRCL calculation 81 ml/min; Estimated Glomerular Filt Rate > 60; Glucose 152 mg/dL (65-110); Lipase 84 U/L (23-300); Potassium 3.7 mmol/L (3.4-5.0); Sodium 138 mmol/L (137-145)
--- NOTE | 2024-03-01 18:56 | ED.ABDPAIN ---
HPI - Abdominal Pain General Chief Complaint: Abdominal Pain <NICHOLE Coles Last Filed: 03/01/24 19:04> Stated Complaint: abd. pain, vomiting, post hernia repair <NICHOLE Coles Last Filed: 03/01/24 19:04> Time Seen by Provider: 03/01/24 18:56 <NICHOLE Coles Last Filed: 03/01/24 19:04> Focused HPI: Patient is a 68 y/o male who presents to the ED with c/o mid abdominal pain. Patient reports he had umbilical and jameel inguinal hernia repair done on Tuesday with Dr. Lopez. States today he began having more severe pain and cramping throughout his mid abdomen. Began vomiting and was unable to keep down food or drink. Was sent here for further evaluation. Pain is slightly improved currently. Patient reports intermittent chills, diaphoresis, shakiness, but denies known fever. States he has not had a BM since the surgery. 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 GENERAL: Tearful-appearing, well-nourished, and in no acute distress. HEAD: Normocephalic, atraumatic. CHEST: Clear to auscultation. ?No respiratory distress. HEART: Regular rate and rhythm.? ABD: Soft, no significant distension. Diffuse tenderness throughout. Mildly hypoactive BS. NEURO: ?Alert and oriented x3. Patient screened in triage and initial orders placed.? ?Additional care and disposition to be based upon?diagnostic testing and treatment. <NICHOLE Coles Last Filed: 03/01/24 19:04> Source: patient <NICHOLE Coles Last Filed: 03/01/24 19:04> Mode of arrival: ambulatory <NICHOLE Coles Last Filed: 03/01/24 19:04> Limitations: no limitations <NICHOLE Coles Last Filed: 03/01/24 19:04> History of Present Illness HPI narrative: Patient is a 68-year-old gentleman who presents emergency department with chief complaint of abdominal discomfort. The patient reports that he had a robotic hernia repair on Tuesday by Dr. Lopez patient states he has had some cramping in his abdomen reports that he has had some nausea and vomiting as well. The patient reports started better since he has been in the emergency department <Clinton Irizarry MD - Last Filed: 03/01/24 21:26> Related Data Allergies/Adverse Reactions: Allergies Allergy/AdvReac Type Severity Reaction Status Date / Time No Known Allergies Allergy Verified 03/01/24 16:28 <Jenae Olson PA-C - Last Filed: 03/01/24 19:04> Review of Systems Review of Systems: A 10 system review of systems was completed on the patient and is negative except for what is stated in the HPI. Nursing and ancillary documentation was reviewed. <Clinton Irizarry MD - Last Filed: 03/01/24 21:26> PMFSH Past Medical History Medical History: Medical History Chronic bilateral low back pain Essential hypertension IFG (impaired fasting glucose) <Jenae Olson PA-C - Last Filed: 03/01/24 19:04> Surgical History Surgical History: Surgical History History of back surgery <Jenae Olson PA-C - Last Filed: 03/01/24 19:04> Social History Social History: Social History Smoking status: Never smoker Second hand tobacco smoke exposure: No Alcohol intake: never Substance use: never Substance use type: does not use Do You Feel Safe in your Home?: Yes Lack of Transportation: No Lack of Food: Never True Current Housing: I Have Housing Concerned About Future Housing: No Difficulty Paying Gas/Electric Bills: No Difficulty Paying for Meds: No Currently Unemployed: No Education: Bachelor's Degree Difficulty w/ Childcare or Family Care: No Living arrangements: with family Additional living arrangements
[2024-03-01] MEDS: HYDROcodone/acetaminophen (*CRX) 5-325 MG TABLET 1 TAB PO (19:08)
[2024-03-01 19:21] LABS: Lactic Acid Reflex 1.6 mmol/L (0.7-2.0)
[2024-03-01 19:50] VITALS: BP 137/87; PULSE 115; RESP 18; O2SAT 96
[2024-03-01 21:06] LABS: Add Urine Microscopic? YES; Appearance Urine Clear (Clear); Bacteria Urine None Seen /hpf; Bilirubin Urine Negative (Negative); Blood Urine 2+ (Negative); Color Urine Yellow (Yellow); Glucose Urine UA Negative (Negative); Ketones Urine 2+ mg/dL (Negative); Leukocyte Esterase Ur Negative LEU/UL (Negative); Nitrate Urine Negative (Negative); Non Pathogenic Casts 0-2; Protein Urine 1+ mg/dL (Negative); RBC Urine 21-50 /hpf (0-2); Specific Grav Ur > 1.045 (1.001-1.035); Squamous Epithelial Cell Urine None Seen /hpf (Few); Urobilinogen Urine 0.2 mg/dL (<2.0); WBC Urine 0-5 /hpf (0-3); pH Urine 7.5 (5.0-9.0)
[2024-03-01] MEDS: MAGNESIUM HYDROXIDE SUSP 30 ML UDC PO (21:16)
[2024-03-01 21:24] VITALS: BP 128/89; PULSE 81; RESP 18; O2SAT 96
== END 2024-03-01 21:36 | disposition home or self-care (01) ==
PROVIDERS: Emergency Medicine; Physician Assistant; Emergency Provider Emergency Medicine; PCP Family Medicine
DX: G89.18 Other acute postprocedural pain (principal); R10.9 Unspecified abdominal pain; I10 Essential (primary) hypertension; Z79.899 Other long term (current) drug therapy
CPT/HCPCS: 36415; 74177; 80053; 81001; 83605; 83690; 85025; 99284; A9270; Q9967

== ENCOUNTER 2024-07-07 12:13 | Emergency (ER) | payer MEDICARE, SELFPAY ==
--- NOTE | ~2024-07-07 | XR_ITS ---
EXAMINATION: XR knee RT 3V DATE: 07/07/2024 12:38 INDICATION: Right knee pain. TECHNIQUE: 3 views of right knee were obtained. COMPARISON: None. FINDINGS: Alignment is normal. No fracture. There is mild tricompartmental osteoarthritis. There is a moderate-sized knee joint effusion. IMPRESSION: 1. Mild right knee osteoarthritis. 2. Moderate-sized knee joint effusion. Reviewed, dictated and finalized at location A. UE TECHNOLOGIST
[2024-07-07 12:14] VITALS: BP 142/86; PULSE 101; RESP 20; TEMP 37; O2SAT 97
--- OUTSIDE RECORDS SUMMARY | 2024-07-07 12:41 | XMS_ITS ---
Author Organization [facility] [place] Address [address] [facility] [place] [address] Care Team Providers Care Dental Technologist Name Role Phone Rudolph Calderon Unavailable [phone] ALLERGIES No Known Allergies REASON FOR VISIT [facility]/ Re-referral Visit (last seen 07/12/22) MEDICATIONS Medication SIG (Take, Route, Frequency, Duration) Notes Start Date End Date Status Nitrofurantoin Monohyd Macro 100 MG TAKE 1 CAPSULE BY MOUTH EVERY 12 HOURS FOR 7 DAYS Oral for 7 Days Not-Taking Neurontin 300 MG 1 capsule Orally Killian e one PO bedtime daily for 90 days Not-Taking Lisinopril 10 MG 1 tablet Orally Once a day Active HYDROcodone-Acetaminophen 5-325 MG 1 tablet Orally q 6-8 hours PRN POST-procedural pain for 10 days 05/05/2021 Not-Taking Gabapentin 300 MG 1 capsule Orally daily, HS for 30 day(s) 04/03/2020 Not-Taking amLODIPine Besylate Active PROBLEMS Problem Type ICD Code Onset Dates Problem Status W/U Status Risk SNOMED Code Notes Problem Carpal tunnel syndrome on both sides (G56.03) Active confirmed Carpal tunnel syndrome ([id number]) VITAL SIGNS Temperature 98.4 degrees Fahrenheit 11/17/19 24 Blood pressure systolic 148 mm Hg 11/17/19 24 Blood pressure diastolic 88 mm Hg 024 Heart Rate 89 /min 11/17/2023 Respiratory Rate 18 /min 11/17/2023 Height 71 in 11/17/2023 Weight 210 lbs 11/17/2023 BMI 29.29 kg/m2 11/17/2023 Encounters Encounter Location Date Provider Diagnosis [place] [facility] [address] [place] [address] 11/17/2023 Rudolph Calderon Radiculopathy of cervical region M54.12 ; Neuroforaminal stenosis of cervical spine M99.81 ; Cervical spondylosis without myelopathy M47.812 ; 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 Persistent neck pain radiating left upper extremity, representing C6 radiculopathy with previous evidence of only modest degree of canal/foraminal stenosis C5/6.2. Cannot exclude interval development of carpal tunnel syndrome both upper extremities.3. 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 Patient has undergone previous lumbar discectomies 1994 and 2004.5. Chronic right L5 pars defect.6. Patient has implanted [employer] spinal cord stimulator with dual octapolar leads and pulse generator, 05/09/2018.Plan1. Proceed with left C6 selective nerve root injection with fluoroscopy. He does not request sedation.2. Patient will self evaluate his response over the next couple of weeks. If he does not make adequate progress, he will contact my office and I will order bilateral upper extremity EMG-NCS.3. Follow-up over the next several weeks. At his next visit, I like to have [employer] see him for evaluation and reprogramming of his implanted spinal cord stimulator. 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 Persistent neck pain radiating left upper extremity, representing C6 radiculopathy with previous evidence of only modest degree of canal/foraminal stenosis C5/6.2. Cannot exclude interval development of carpal tunnel syndrome both upper extremities.3. 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 Patient has undergone previous lumbar discectomies 1994 and 2004.5. Chronic right L5 pars defect.6. Patient has implanted [employer] spinal cord stimulator with dual octapolar leads and pulse generator, 05/09/2018.Plan1. Proceed with left C6 selective nerve root injection with fluoroscopy. He does not request sedation.2. Patient will self evaluate his response over the next couple of weeks. If he does not make adequate progress, he will contact my office and I will order bilateral upper extremity EMG-NCS.3. Follow-up over the next several weeks. At his next visit, I like to have [employer] see him for evaluation and reprogramming of his implanted spinal cord stimulator. MEDICATIONS ADMINISTERED Medication Instructions Date of Administration Dosage Notes LEFT C6 SNRI 11/17/2023 Progress Notes * Richard WALLACE: [birth year] (68 yo M)Acc No.[id number]:11/17/2023 Patient: Richard WALLACE Provider: Rudolph Calderon DO :1955 Age:68 Y Sex:Male Date:11/17/2023 Address:[address] [place] [address] Subjective: * Chief Complaints: * [facility]/ Re-referral Visit (last seen 07/12/22) * HPI: Follow-up Questionnaire: Pain Evaluation This patient encounter was conducted at the [facility]. The patient completed a questionnaire on the progress that has been made since the last office visit. This form was reviewed and the responses are included in this progress note.. Location of pain: back hands. Onset of pain: years ago. Average Pain Since Last Visit on Scale of 0 to 10: 8. Number describing interference w/enjoyment of life: 9. Relief from Injections/Medications: c - I am better, but not great yet.. Improvement in functional ability: e - I still cannot do anything I want to do or go to work because the pain is still too severe.. Level of Pain on 1-10 Scale w/ 10 being most severe- TODAY 7. Level of Pain on 1-10 Scale w/ 10 being most severe- LEAST 7. Level of Pain on 1-10 Scale w/ 10 being most severe- WORST 9. Pain Level on 1-10 Scale w/ 10 being most severe- OVERALL 8. Words that best describe the pain: sharp, electric shock, burning. Duration of pain: constant, mostly in the morning. Aggravating/Associated factors of pain: walking. The Pain is Associated with: numbness, tingling, weakness. This 68-year-old KXKSI-krjw-pstqlrmr white male presents to the pain clinic today for rereferral visit, having not been seen since 07/12/2023. At his last visit, he underwent left C3/4, C4/5 and C5/6 facet joint injections with improvement but was thereafter lost to follow-up. In the interval since then, he has noted return of neck pain, radiating to left upper extremity, describing symptoms extending to his left thumb/index finger, possibly suggesting C6 radicular pattern although he has described paresthesias and dysesthetic component in both hands, overlapping thumb, index and middle fingers, possibly representing carpal tunnel syndrome. Predominant pain is in the left upper extremity. 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 He has implanted [employer] spinal cord stimulator with dual octapolar epidural leads and pulse generator, replaced and revised in 2018 by me. 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 Greatest complaint is that of his neck and left upper extremity symptoms. Medical history includes hypertension. I daya studies: X-ray cervical spine 04/07/2022 revealed 2 mm anterior listhesis C4/5 but no instability with bending maneuvers. Loss of disc space height C5/6, C6/7 and C7/T1. Bony foraminal stenosis noted on the left at C4/5, C5/6 and C6/7 with small anterior spurs at multiple levels. C T cervical spine 06/29/2022 revealed slight levocurvature of cervical spine. 2 mm anterior listhesis C3/4 and C4/5. Severely decreased disc space height noted C5/6, C6/7 and C7/T1. At C2/3, moderate right and mild left facet arthropathy but without stenosis. At C3/4, mild central canal and bilateral foraminal encroachment. C4/5 segment revealed moderate left-sided foraminal encroachment but no central canal narrowing. At C5/6, severe uncovertebral degenerative changes as well as milder facet arthropathy bilaterally contribute to mild canal and bilateral foraminal encroachment. At C6/7, mild canal and bilateral foraminal encroachment. C7/T1 reveals moderate bilateral foraminal encroachment without central canal stenosis. C T lumbar spine without contrast 10/08/2021 revealed 10 degree dextroscoliosis lumbar spine. 3 mm retrolisthesis L2/3 and L3/4 with 4 mm anterior listhesis L5/S1. There is suggestion of chronic right L5 pars defect. L1/2 reveals disc bulging with hypertrophic facets contributing to mild canal and bilateral foraminal encroachment. L2/3 disc bulge with hypertrophic facets contributing to mild central canal stenosis as well as moderate left-sided foraminal encroachment. L3/4 disc bulging with mild central canal stenosis and moderate bilateral foraminal stenosis. L4/5 disc bulge with severe hypertrophic facets and moderate bilateral foraminal encroachment with mild central canal narrowing. At L5/S1, severe hypertrophic facets bilaterally with moderate bilateral foraminal encroachment and moderate overall spinal canal stenosis. Spondylosis changes worsened in comparison to imaging from 2018. * ROS: Pain Management ROS: Patient Denies: GENERAL: weight or appetite changes, fever, chills, disturbed sleeping habits. Patient Denies: EYE: eye infections, blurred vision, double vision, blindness. Patient Denies: ENT: hearing loss, inflamed nose, hoarseness, sore throat, bloody nose, sinusitis, dizziness. Patient Denies: CARDIAC: chest pains, heart murmur, skipped beats. Patient Denies: GENITOURINARY bladder incontinence, difficulty urinating. Patient Denies: RESPIRATORY cough, coughing up blood, wheezing, shortness of breath, difficulty breathing on exertion. Patient Denies: GI constipation, diarrhea, blood in stools, nausea/vomiting. Patient Denies: NEUROLOGIC headaches, dizziness, falling, seizures, numbness, tremor. Patient Denies: ENDOCRINE hot and cold flashes. Patient Denies: HEMATOLOGICAL easy bruisability, difficulty in clotting the blood. Patient Denies: JOINTS joint or muscle limitation and pain other than the present illness. Patient Denies: PSYCHIATRIC: depression, mood swings, anxiety. Patient Denies: SKIN lacerations, abrasions, postules, nodules, tumors, breast changes. * Medical History: * Surgical History: tonsillectomy lumbar spine * Hospitalization/Major Diagno stic Procedure: No Hospitalization History. * Family History: No Family History documented.. * Social History: Education: How far did you get in your education?: college. * Medications: TakingamLODIPine Besylate Lisinopril 10 MG Tablet 1 tablet Orally Once a day Taking amLODIPine Besylate Taking Lisinopril 10 MG Tablet 1 tablet Orally Once a day Not-TakingGabapentin 300 MG Capsule 1 capsule Orally daily, HS HYDROcodone-Acetaminophen 5-325 MG Tablet 1 tablet Orally q 6-8 hours PRN POST-procedural pain Neurontin 300 MG Capsule 1 capsule Orally Take one PO bedtime daily Nitrofurantoin Monohyd Macro 100 MG Capsule TAKE 1 CAPSULE BY MOUTH EVERY 12 HOURS FOR 7 DAYS Oral Medication List reviewed and reconciled with the patientNot-Taking Gabapentin 300 MG Capsule 1 capsule Orally daily, HS Not- Taking HYDROcodone-Acetaminophen 5-325 MG Tablet 1 tablet Orally q 6-8 hours PRN POST-procedural pain Not-Taking Neurontin 300 MG Capsule 1 capsule Orally Take one PO bedtime daily Not-Taking Nitrofurantoin Monohyd Macro 100 MG Capsule TAKE 1 CAPSULE BY MOUTH EVERY 12 HOURS FOR 7 DAYS Oral Medication List reviewed and reconciled with the patient * Allergies: N.K.D.A.no[Allergies Verified] Objective: * Vitals: Temp:98.4F, HR:89/min, BP:148/88mm Hg, Wt:210lbs, BMI:29.29Index, Ht: 71 in, RR:18/min, Ht-cm: 180.34 cm, Wt-k.25 kg. * Examination: DGS: Follow-up exam elements: General The patient appeared in no distress. The patient is alert and oriented to time, place, and person. Respiratory Grossly clear to auscultation all landrum.. Cardiovascular Regular rate and rhythm without definite murmur. No appreciable peripheral edema noted.. Neck Grossly normal head position. Patient notes more pain with cervical extension and rotation/sidebending to the left then with flexion or rotation/sidebending to the right side. Only mild tenderness noted along the left greater than right cervical paraspinal and trapezius regions. Overlying skin appears normal.. Musculoskeletal He demonstrates fairly unremarkable shoulder range of motion bilaterally. There was no significant pain provocation. Patient has more pain with trunk extension approaching 10-15 degrees then with trunk flexion, 60 degrees where he experiences tightness .? Mild tenderness lower lumbar paravertebral areas.. Neurologic Patient is right-hand dominant. He does not describe areas of persistent sensory loss in the upper extremities but has been experiencing paresthesias and even a dysesthetic component in bilateral median distribution of his hands, worse on the left side. Cannot exclude over lapping left C6 radicular symptoms due to predominance of symptoms thumb and index finger. Equivocally positive Tinel's left greater than right. No areas of overt muscular atrophy noted in the upper extremities. He does not describe signs/symptoms of cervical myelopathy. DTRs +1 bilateral biceps, triceps and brachioradialis. Spurling's equivocally positive left side. In the lower extremities, he describes chronic numbness along the left anterior thigh and plantar surfaces of feet. DTRs trace patella and Achilles bilaterally. Bilateral ankle dorsiflexion and plantarflexion against resistance appear symmetrical. Specific bilateral EHL function against resistance grossly normal.. Assessment: * Assessment: 1. Radiculopathy of cervical region - M54.12 (Primary) 2. Neuroforaminal stenosis of cervical spine - M99.81 3. Cervical spondylosis without myelopathy - M47.812 4. 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 Carpal tunnel syndrome on both sides - G56.03 Plan: * Treatment: * Procedures: Left C6 selective nerve root injection utilizing C5/6 transforaminal approach with fluoroscopy After signing consent, patient was taken to procedure area where he was placed supine on fluoroscopically compatible table. Monitors were applied consisting of automatic blood pressure cuff and pulse oximeter. No sedation was administered and no IV established. With head turned to the right, left side of neck was prepped with Betadine solution allowed to dry on the skin. Sterile drapes were applied and aseptic technique observed. Using left oblique fluoroscopic imaging, the C5/6 foramen was identified and overlying skin anesthetized with 0.5% preservative-free lidocaine via 27-gauge needle. A 25-gauge 3.5 inch spinal needle was inserted into the posterior aspect of the left C5/6 foramen. Injection of 1 mL Omnipaque 240 revealed excellent outline of the exiting C6 nerve root, emerging beneath the C5 pedicle. This was followed by injection of 2.5 mL volume containing 0.5% preservative-free lidocaine with 10 mg preservative free and particulate free dexamethasone. Needle was withdrawn tip intact. No complications encountered. Prep was wiped from the skin and latex free Band-Aid placed over puncture site. He was transported to recovery area where he was observed for short while before being discharged in satisfactory condition. At discharge, he did not note change in presenting pain. Please refer to clinical notes for specific pain scores. * Therapeutic Injections: LEFT C6 SNRI given by Rudolph Calderon DO * Procedure Codes: LEFT C6 SNRI * Preventive Medicine: PQRS: PQRS G8417: BMI above normal (overweight) and f/u plan documented., G8428: Current medication with name, dosage, frequency, or route NOT documented, not given - performance NOT met., 1036F: Patient screened for tobacco use and identified as a non-user of tobacco.. Oswestry Score: Oswestry Score 14. * Images: * Sign off status: Completed true * Provider: Rudolph Calderon DO Date: 11/17/2023 History and Physical Notes * HPI (History of Present Illness) Category Sub-Category Detail Notes Category Not es Follow-up Questionnaire Average Pain Since Last Visit on Scale of 0 to 10: 8 This 68-year-old IUXXW-evxk-akgqjeoj white male presents to the pain clinic today for rereferral visit, having not been seen since 07/12/2023. At his last visit, he underwent left C3/4, C4/5 and C5/6 facet joint injections with improvement but was thereafter lost to follow-up. In the interval since then, he has noted return of neck pain, radiating to left upper extremity, describing symptoms extending to his left thumb/index finger, possibly suggesting C6 radicular pattern although he has described paresthesias and dysesthetic component in both hands, overlapping thumb, index and middle fingers, possibly representing carpal tunnel syndrome. Predominant pain is in the left upper extremity. 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 He has implanted [employer] spinal cord stimulator with dual octapolar epidural leads and pulse generator, replaced and revised in 2018 by me. 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 Greatest complaint is that of his neck and left upper extremity symptoms. Medical history includes hypertension. Imaging studies: X-ray cervical spine 04/07/2022 revealed 2 mm anterior listhesis C4/5 but no instability with bending maneuvers. Loss of disc space height C5/6, C6/7 and C7/T1. Bony foraminal stenosis noted on the left at C4/5, C5/6 and C6/7 with small anterior spurs at multiple levels. CT cervical spine 06/29/2022 revealed slight levocurvature of cervical spine. 2 mm anterior listhesis C3/4 and C4/5. Severely decreased disc space height noted C5/6, C6/7 and C7/T1. At C2/3, moderate right and mild left facet arthropathy but without stenosis. At C3/4, mild central canal and bilateral foraminal encroachment. C4/5 segment revealed moderate left-sided foraminal encroachment but no central canal narrowing. At C5/6, severe uncovertebral degenerative changes as well as milder facet arthropathy bilaterally contribute to mild canal and bilateral foraminal encroachment. At C6/7, mild canal and bilateral foraminal encroachment. C7/T1 reveals moderate bilateral foraminal encroachment without central canal stenosis. CT lumbar spine without contrast 10/08/2021 revealed 10 degree dextroscoliosis lumbar spine. 3 mm retrolisthesis L2/3 and L3/4 with 4 mm anterior listhesis L5/S1. There is suggestion of chronic right L5 pars defect. L1/2 reveals disc bulging with hypertrophic facets contributing to mild canal and bilateral foraminal encroachment. L2/3 disc bulge with hypertrophic facets contributing to mild central canal stenosis as well as moderate left-sided foraminal encroachment. L3/4 disc bulging with mild central canal stenosis and moderate bilateral foraminal stenosis. L4/5 disc bulge with severe hypertrophic facets and moderate bilateral foraminal encroachment with mild central canal narrowing. At L5/S1, severe hypertrophic facets bilaterally with moderate bilateral foraminal encroachment and moderate overall spinal canal stenosis. Spondylosis changes worsened in comparison to imaging from 2018. Number describing interferen ce w/enjoyment of life: 9 Relief from Injections/Medications: c - I am better, but not great yet. Improvement in functional ability: e - I still cannot do anything I want to do or go to work because the pain is still too severe. Pain Evaluation This patient encount er was conducted at the [facility]. The patient completed a questionnaire on the progress that has been made since the last office visit. This form was reviewed and the responses are included in this progress note. Onset of pain: years ago Location of pain: back hands Duration of pain: constant, mostly in the morning Words that best describe the pain: sharp , electric shock, burning Aggravating/Associated factors of pain: walking Level of Pain on 1-10 Scale w/ 10 being most severe- TODAY 7 Level of Pain on 1-10 Scale w/ 10 being most severe- LEAST 7 Level of Pain on 1-10 Scale w/ 10 being most severe- WORST 9 Pain Level on 1-10 Scale w/ 10 being most severe- OVERALL 8 The Pain is Associated with: numbness, t ingling, weakness Examination Category Sub-Category Detail Notes Category Not es DGS: Follow-up exam elements General The patient appeared in no distress. The patient is alert and oriented to time, place, and person Respiratory Grossly clear to aus cultation all landrum. Cardiovascular Regular rate and rhy thm without definite murmur. No appreciable peripheral edema noted. Neck Grossly normal head position. Patient notes more pain with cervical extension and rotation/sidebending to the left then with flexion or rotation/sidebending to the right side. Only mild tenderness noted along the left greater than right cervical paraspinal and trapezius regions. Overlying skin appears normal. Musculoskeletal He demonstrates fair ly unremarkable shoulder range of motion bilaterally. There was no significant pain provocation. Patient has more pain with trunk extension approaching 10-15 degrees then with trunk flexion, 60 degrees where he experiences tightness . Mild tenderness lower lumbar paravertebral areas. Neurologic Patient is right-otoole d dominant. He does not describe areas of persistent sensory loss in the upper extremities but has been experiencing paresthesias and even a dysesthetic component in bilateral median distribution of his hands, worse on the left side. Cannot exclude over lapping left C6 radicular symptoms due to predominance of symptoms thumb and index finger. Equivocally positive Tinel's left greater than right. No areas of overt muscular atrophy noted in the upper extremities. He does not describe signs/symptoms of cervical myelopathy. DTRs +1 bilateral biceps, triceps and brachioradialis. Spurling's equivocally positive left side. In the lower extremities, he describes chronic numbness along the left anterior thigh and plantar surfaces of feet. DTRs trace patella and Achilles bilaterally. Bilateral ankle dorsiflexion and plantarflexion against resistance appear symmetrical. Specific bilateral EHL function against resistance grossly normal.
--- OUTSIDE RECORDS SUMMARY | 2024-07-07 12:41 | XMS_ITS | Patient Health Record ---
Author Organization [facility] [place] Address [address] [facility] [place] [address] Care Team Providers Care Vice President Compliance Name Role Phone Rudolph Calderon Unavailable [phone] ALLERGIES No Known Allergies REASON FOR REFERRAL No Information MEDICATIONS Medication SIG (Take, Route, Frequency, Duration) Notes Start Date End Date Status amLODIPine Besylate Active Nitrofurantoin Monohyd Macro 100 MG TAKE 1 [...] daily, HS for 30 day(s) 04/03/2020 Not-Taking SOCIAL HISTORY Tobacco Use: Social History Observation Description Date Details (start date - stop date) Never Smoker NA - NA Sex Assigned At : Social History Observation Description Sex Assigned At Unknown Tobacco Use/Smoking Question Answer Notes Are you a nonsmoker PROBLEMS Problem Type ICD Code Onset Dates Problem Status W/U Status Risk SNOMED Code Notes Problem Spondylosis without myelopathy or radiculopathy, lumbosacral region (M47.817) Active confirmed 60669044 Problem Lumbar radiculopathy (M54.16) Active confirmed Lumbar radiculopathy (254453437) Problem Radiculopathy of cervical region (M54.12) Active confirmed 68788754 Problem Radiculopathy of lumbosacral region (M54.17) Active confirmed 9303045 Problem 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 confirmed 112403357 Problem Cervical spondylosis without myelopathy (M47.812) Active confirmed Cervical spondylosis without myelopathy (586130159) Problem Cervical spondylosis with radiculopathy (M47.22) Active confirmed 835149403 Problem 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) Active confirmed 456437163 Problem 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) Active confirmed Stenosis of lateral recess of lumbar spine (988975579) Problem Carpal tunnel syndrome on both sides (G56.03) Active confirmed Carpal tunnel syndrome (76417530) Problem 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) Active confirmed Acquired deformity of neck (87715905) VITAL SIGNS Heart Rate 89 /min 11/17/2023 Temperature 98.4 degrees Fahrenheit 11/17/2023 Respiratory Rate 18 /min 11/17/2023 Blood pressure diastolic 88 mm Hg 11/17/2023 Height 71 in 11/17/2023 Blood pressure systolic 148 mm Hg 11/17/2023 Weight 210 lbs 11/17/2023 BMI 29.29 kg/m2 11/17/2023 Encounters Encounter Location Date Provider Diagnosis [facility] [address] [place] [address] 11/17/2023 Rudolph Calderon Radiculopathy of cervical region [...] sides (ICD-10 - G56.03) PLAN OF TREATMENT No Information MEDICATIONS ADMINISTERED Medication Instructions Date of Administration Dosage Notes Caudal MARILYN 03/22/2018 Caudal MARILYN 04/06/2018 LEFT C3/4, C4/5 and C5/6 Fac et Joint Injections with fluoroscopy 07/12/2022 LEFT C4/5 and C5/6 Facet Injections 06/16/2022 LEFT C6 SNRI 11/17/2023 RIGHT C8 SNRI 02/28/2018 RIGHT L3-S1 MBPR (Facet) RF Denervation 05/05/2021 RIGHT L4/5 and L5/S1 Facet J oint Injections 11/21/2020 RIGHT L4/5 and L5/S1 Facet J oint Injections 01/28/2021 MEDICAL (GENERAL) HISTORY Medical History History ICD Code hypertension Surgical History Surgery Date(Month/Year) tonsillectomy lumbar spine
--- OUTSIDE RECORDS SUMMARY | 2024-07-07 12:41 | XMS_ITS | Clinical Summary ---
Author Organization [facility] Administrative Offices Address [address] [place] [address] Care Team Providers Care Litigation Services Manager Name Role Phone Zach Rosen MD Primary Care Provider [phone] Allergies No known active allergies Medications lisinopril (PRINIVIL) 10 mg tablet Take 10 mg by mouth daily. Active gabapentin (NEURONTIN) 300 mg capsule Take 300 mg by mouth daily at bedtime. Active traMADol (ULTRAM) 50 mg tablet Take 100 mg by mouth every 6 hours as needed for Pain. Active HYDROcodone-inocencio taminophen (NORCO) 7.5-325 mg Tablet Take 1 Tablet by mouth every 6 hours as needed for Pain, Moderate. Max Daily Amount: 4 Tablets 25 Tablet 05/09/2018 Active mupirocin (BACTROBAN) 2 % Ointment Apply to affected area daily. 22 Gram 2 05/09/2018 Active Active Problems Problem Noted Date Diagnosed Date Postlaminectomy syndrome, lumbar region 05/09/20 18 Immunizations Immunization Administration Dates Next Due Influenza Seasonal Unspecified Formulation IM Social History Tobacco Use Types Packs/Day Years Used Date Smoking Tobacco: Never Smokeless Tobacco: Never Alcohol Use Standard Drinks/Week Comments No 0 (1 standard drink = 0.6 oz pur e alcohol) RARELY Sex and Gender Information Value Date Recorded Sex Assigned at Not on file Legal Sex Male 1:26 PM CDT Gender Identity Not on file Sexual Orientation Not on file Last Filed Vital Signs Vital Sign Reading Time Taken Comments Blood Pressure 129/83 05/09/2018 5:40 PM PLASTIC CUTTER Pulse 95 05/09/2018 5:40 PM PLASTIC CUTTER Temperature 36.6 C (97.8 F) 05/09/2018 5:40 PM PLASTIC CUTTER Respiratory Rate 15 05/09/2018 5:40 PM PLASTIC CUTTER Oxygen Saturation 100% 05/09/2018 5:40 PM PLASTIC CUTTER Inhaled Oxygen Concentration - - Weight 106.4 kg (234 lb 9.6 oz) 018 11:59 AM PLASTIC CUTTER Height 180.3 cm (5' 11 ) 05/09/2018 11: 59 AM PLASTIC CUTTER Body Mass Index 32.72 05/09/2018 11:59 AM PLASTIC CUTTER Plan of Treatment Health Maintenance Due Date Last Done Comments DTAP/TDAP/TD VACCINES (1 - Tdap) 1973 COLORECTAL SCREENING 1999 Colorectal Cancer Screening 1999 FIT-DNA Q 3 years 1999 FIT/FOBT Q 1 year 1999 Flex Sig/CT Colonography Q 5 years 1999 PNEUMOCOCCAL VACCINE 65+ YEA RS (1 of 1 - PCV) 2004 ZOSTER VACCINE (1 of 2) 2004 INFLUENZA VACCINE (#1) 2023 03/24/2019, 2017 RSV VACCINE (60+ or ) (1 - 1-dose 75+ series) 2029 Medical Devices Implanted Type Area Sheet Metal Worker Device Identifier Shelf Expiration Date Model / Serial / Lot Patient Controller Intellis Ptm Implanted:Qty: 1 on 05/09/2018 by Rudolph Calderon DO at [facility] Integral N/A: Back [employer]- NEUROLOGIC TECH [id number] / [id number] N / Description:All Medtronic co mponents are processed on requisition [id number] Patient Mission Analyst Intellis Rtm Implanted:Qty: 1 on 05/09/2018 by Rudolph Calderon DO at [facility] Integral N/A: Back [employer]- NEUROLOGIC TECH [id number] / [id number] N / Lead Surescan Vectris Mri [id number] - [id number] Implanted:Qty: 1 on 05/09/2018 by Rudolph Calderon DO at [facility] Lead N/A: Back [employer]- NEUROLOGIC TECH 03/24/2022 [id number] / / [id number] Lead Surescan Vectris Mri [id number] - [id number] Implanted:Qty: 1 on 05/09/2018 by Rudolph Calderon DO at [facility] Lead N/A: Back [employer]- NEUROLOGIC TECH 03/24/2022 [id number] / / [id number] Medtronic Intellis Adaptivestim Implanted:Qty: 1 on 05/09/2018 by Rudolph Calderon DO at [facility] N/A: Back [employer]- NEUROLOGIC TECH 03/26/2019 [id number] / [id number] H / [id number] H Description:MRI conditional - FULL BODY eligible - 30 minutes of scanning. Pt to bring remote to appt to show breed to wean production technician that he turned into MRI mode-crispin 12/26/18 NO OPEN MRI or 3T Advance Directives For more information, please contact: [phone] * Full Code (Latest Code Status on File) Date Activated Date Inactivated Comments 05/09/2018 12:41 PM 05/09/2018 8:00 PM * Full Code Date Activated Date Inactivated Comments 05/09/2018 12:00 PM 05/09/2018 12:41 PM Care Teams Litigation Services Manager Relationship Specialty Start Date End Date Zach Rosen MD [address] [address] PCP - General Family Practice 12/21/18
--- NOTE | 2024-07-07 12:50 | ED.EXTPRO ---
HPI - Extremity Problem General Chief complaint: Extremity Problem,Nontraumatic Stated complaint: knee pain Time Seen by Provider: 07/07/24 12:32 History of Present Illness HPI Narrative: 69-year-old male with history of chronic right knee pain presented emergency room with chief complaint of worsening right knee pain over last few days. Neer's been more swollen lately and warm to the touch but no overlying skin changes, trauma or injury. Denies any previous knee injections or knee replacement. No surgeries in that knee. Was otherwise in his normal state of health. Denies any fever, chills, systemic symptoms. Is able to ambulate although uncomfortable. He took Vicodin at home with only mild improvement in symptoms but no anti-inflammatory medications or compression. Has not seen orthopedic doctor about this previously. Has chronic back pain as well with a nerve stimulator. No weakness in the limb, full range of motion albeit uncomfortable. Related Data Allergies Allergy/AdvReac Type Severity Reaction Status Date / Time No Known Allergies Allergy Verified 07/07/24 12:19 Review of Systems Review of Systems: As reviewed above in HPI [facility] Past Medical History Medical History IFG (impaired fasting glucose) Chronic bilateral low back pain Essential hypertension Surgical History Surgical History Hx of bilateral inguinal hernia repair Robotic assisted laparoscopic bilateral inguinal hernia repairs with Bard 3D mid weight mesh by Dr. Lopez on 02/28/24 History of back surgery Social History Social History Smoking status: Never smoker Second hand tobacco smoke exposure: No Alcohol intake: never Substance use: never Substance use type: does not use Do You Feel Safe in your Home?: Yes Lack of Transportation: No Lack of Food: Never True Current Housing: I Have Housing Concerned About Future Housing: No Difficulty Paying Gas/Electric Bills: No Difficulty Paying for Meds: No Currently Unemployed: No Education: Bachelor's Degree Difficulty w/ Childcare or Family Care: No Living arrangements: with family Additional living arrangements comments: [employer]SE Occupation/Education: retired Gender identity (if verbalized by the patient): Male Spiritual care concerns: No Exam Narrative: GENERAL: [Well-appearing, well-nourished, and in no acute distress.] HEAD: [Normocephalic, atraumatic.] EYES: [PERRLA and EOMI.] ENT: Nares clear, no rhinorrhea or epistaxis. Mucous membranes moist. NECK: Supple. CHEST: [Clear to auscultation. No respiratory distress.] HEART: [Regular rate and rhythm]. No murmur heard. [Normal peripheral pulses.] ABDOMEN: [Soft, nondistended], [nontender], [No rigidity or guarding] EXTREMITIES: Right knee is slightly more swollen compared to the left knee, tender to palpation diffusely, mild warmth but no erythema or overlying skin changes or signs of active cellulitis or infection. No calf swelling or asymmetry. Full range of motion of the dorsiflexion and plantar flexion of the ankle, able to flex and extend the knee, flex and extend at the hip, able to hold extensor mechanism with full strength. Range of motion is painful but not limited. SKIN: Warm, dry, no rash. NEURO: [No focal deficits]. Alert and oriented [x3.] PSYCH: [Normal mood and affect.] Course Vital Signs Vital signs: Vital Signs Temperature 37.0 C 07/07/24 12:14 Pulse Rate 101 H 07/07/24 12:14 Respiratory Rate 20 07/07/24 12:14 Blood Pressure 142/86 H 07/07/24 12:14 Pulse Oximetry 97 07/07/24 12:14 Oxygen Delivery Room Air 07/07/24 12:14 Temperature 37.0 C 07/07/24 12:14 Pulse Rate 101 H 07/07/24 12:14 Respiratory Rate 20 07/07/24 12:14 Blood Pressure 142/86 H 07/07/24 12:14 Pulse Oximetry 97 07/07/24 12:14 Oxygen Delivery Room Air 07/07/24 12:14 MDM - Extremity (Nontraumatic) MDM Narrative Medical decision making narrative: 69-year-old male presenting with acute on chronic right knee pain. History of arthritis and chronic back pain with the nerve stimulator. No injury or trauma to his right knee. Knee is slightly enlarged compared to the left side and mildly warm to the touch but no overlying skin changes or concern for cellulitis or deep space infection. He has full range of motion albeit uncomfortable. Full strength on assessment of his major muscle groups and joints. No weakness or sensory changes. He is afebrile, has no systemic symptoms. Denies any injury. X-rays right knee were obtained as well as giving him Toradol and Tylenol as well as an Brennen wrap for comfort. Patient has arthritis and chronic knee pain and this is likely an acute exacerbation rather than an infectious or other inflammatory process. X-rays were obtained and show a moderate sized joint effusion, arthritis but no fractures or dislocations or any other acute osseous process. Patient will be re-evaluated after analgesia medications and safe for discharge with outpatient orthopedic follow-up. Discharge Plan Discharge Clinical Impression: Knee pain, right, Joint effusion of knee, Arthritis Patient Disposition: Home, Self-Care Condition: Stable Instructions: Antibiotic Form, Knee Sprain (ED), Swollen Knee Joint (ED), Knee Pain (ED) Additional Instructions: Your x-ray showed no fractures but there is arthritis and a moderate sized joint effusion but no concerning features on your exam. Likely secondary to a sprain or acute on chronic arthritis. We will send you home with some pain control anti-inflammatory medications. Recommendations for ice up to 20 minutes at a time up to 4 times daily and any consider adding and heat. If the pain or swelling does not resolve with time and these medications, will refer you to Orthopedic surgery for outpatient evaluation. If any worsening persistent or new symptoms you could always return to the ED for evaluation. Patient Language: Uruguayan Prescriptions: New naproxen [Naprosyn] 500 mg tablet 500 mg PO BID PRN (Reason: pain) Qty: 30 0RF acetaminophen [Tylenol Extra Strength] 500 mg tablet 1,000 mg PO TID PRN (Reason: pain) Qty: 30 0RF No Action amlodipine 5 mg tablet See Rx Instructions .ROUTE .COMPLEX Qty: 90 1RF Dose Instruction: TAKE 1 TABLET BY MOUTH DAILY Patient Comments: QAM Rx Instructions: TAKE 1 TABLET BY MOUTH DAILY lisinopril 20 mg tablet See Rx Instructions .ROUTE .COMPLEX Qty: 90 1RF Dose Instruction: TAKE 1 TABLET BY MOUTH DAILY Patient Comments: QAM Rx Instructions: TAKE 1 TABLET BY MOUTH DAILY tamsulosin 0.4 mg Capsule 0.4 mg PO QAM Qty: 30 0RF Follow-up/Referrals: Zach Rosen MD [Primary Care Provider] - Aniket Ley MD [Physician] - 1 Week (Knee pain and effusion) Time of Disposition: 14:15
[2024-07-07] MEDS: ACETAMINOPHEN 500 MG TABLET 1000 MG PO (12:54)
[2024-07-07] MEDS: KETOROLAC 30 MG/ML VIAL (*BKC) IM (12:55)
== END 2024-07-07 14:30 | disposition home or self-care (01) ==
PROVIDERS: Emergency Provider Student in an Organized Health Care Education/Training Program; PCP Family Medicine
DX: M25.561 Pain in right knee (principal); M25.461 Effusion, right knee; M17.11 Unilateral primary osteoarthritis, right knee; I10 Essential (primary) hypertension; M54.9 Dorsalgia, unspecified; G89.29 Other chronic pain; Z96.82 Presence of neurostimulator; Z79.899 Other long term (current) drug therapy
CPT/HCPCS: 31899; 73562; 96372; 99283; A9270; J1885

== ENCOUNTER 2024-11-01 08:50 | Day surgery (SDC) | payer MEDICARE, SELFPAY ==
[2024-10-17 08:44] VITALS: BMI 27.9
--- NOTE | 2024-11-01 07:03 | PM.HPGS ---
History of Present Illness History of Present Illness Chief complaint: Bilateral Carpal Tunnel Syndrome Narrative: Patient seen and examined in pre-operative holding area. No interval change in medical history or symptoms. Patient recalls previous discussion of benefits and alternatives to procedure. Continues to desire to proceed with left endoscopic possible open carpal tunnel release and right carpal tunnel steroid injection. Reviewed procedure, post-op expectations and risks including but not limited to bleeding, infection, injury to tendon/nerve/vessel, decreased hand function, stiffness, RSD, no change or worsening of symptoms, thinning of skin from injeciton, pigmentation changes. I discussed the possible use of assistants and their participation in the case. Patient stated understanding and signed the consent form wishing to proceed. Review of Systems Review of Systems: All systems reviewed & are unremarkable except as noted in HPI and below PMFSH Past Medical History Medical History Degenerative joint disease of knee Knee pain, right IFG (impaired fasting glucose) Chronic bilateral low back pain Essential hypertension Surgical History Surgical History Hx of bilateral inguinal hernia repair Robotic assisted laparoscopic bilateral inguinal hernia repairs with Bard 3D mid weight mesh by Dr. Lopez on 02/28/24 History of back surgery Social History Social History Smoking status: Never smoker Second hand tobacco smoke exposure: Yes Alcohol intake: never Substance use: never Substance use type: does not use Do You Feel Safe in your Home?: Yes Lack of Transportation: No Lack of Food: Never True Current Housing: I Have Housing Concerned About Future Housing: No Difficulty Paying Gas/Electric Bills: No Difficulty Paying for Meds: No Currently Unemployed: No Education: Bachelor's Degree Difficulty w/ Childcare or Family Care: No Living arrangements: with family Additional living arrangements comments: SPOUSE Occupation/Education: retired Gender identity (if verbalized by the patient): Male Spiritual care concerns: No Meds Home Medications and Allergies Home Medications ?Medication ?Instructions ?Recorded ?Confirmed ?Type acetaminophen 500 mg tablet 1,000 mg (2 x 500 mg) PO TID PRN 07/07/24 11/01/24 Rx (Tylenol Extra Strength) pain #30 tabs tamsulosin 0.4 mg capsule 0.4 mg PO QAM #90 caps 08/14/24 11/01/24 Rx amlodipine 5 mg tablet 5 mg PO QAM 10/17/24 11/01/24 History lisinopril 20 mg tablet 20 mg PO QAM 10/17/24 11/01/24 History tramadol 50 mg tablet 50 mg PO Q6H PRN pain #12 tabs 11/01/24 Rx Allergies Allergy/AdvReac Type Severity Reaction Status Date / Time No Known Allergies Allergy Verified 11/01/24 09:19 Exam Narrative: unchanged from previous Assessment and Plan Assessment and plan (1) Carpal tunnel syndrome: Qualifiers: Laterality: bilateral Qualified Code(s): G56.03 - Carpal tunnel syndrome, bilateral upper limbs Code(s): G56.00 - Carpal tunnel syndrome, unspecified upper limb Status: Acute Plan cont as above
--- NOTE | 2024-11-01 07:05 | W.PM.PROC2 ---
Procedure Note - Detailed Date of Procedure 11/01/24 Pre-op Diagnosis Bilateral Carpal Tunnel Syndrome Post-op Diagnosis Same Procedure Performed left ectr and right carpal tunnel steroid injection Surgeon Mirella Ferguson MD Rn Concurrent Review luis miguel ragland pa-c Anesthesia MAC Description of Procedure INFORMED CONSENT: The patient was seen and examined and marked in the pre-op area.? The patient signed the consent form. PROCEDURE IN DETAIL:The patient taken back to OR on the stretcher in supine position. Time out performed with anesthesia, surgeon and staff agreeing on patient's name site and surgery to be performed SCDs were placed on the lower extremities and inflated. A tourniquet was placed on {left} upper extremity and antibiotics given IV After anesthesia administered sedation I injected {5}cc 1%lido with epi and 0.5% marcaine plain at the operative site The?{left upper extremity}?was prepped and draped in sterile fashion the??{left upper extremity} was? exsanguinated with Esmarch bandage and tourniquet inflated to 250mmHg I made a transverse incision in the {left} volar distal wrist crease through skin and dermis with 15 blade scalpel.? Littler scissors spread down to antebrachial fascia. A small incision was made in antebrachial fascia allowing access to Carpal tunnel. I proceeded with sequential dilation staying in line with the ring finger and hugging the hook of the hamate.? I then used the synovial elevator to free any adhesions from the underside of the transverse carpal ligament. Next I was able to insert the Microaire endoscopic carpal tunnel device with direct visualization of the transverse fibers on the monitor and proceeded with complete segmental retrograde release of the ligament in its entirety.? I irrigated with normal saline and closed with 4-0 monocryl for dermis and subcuticular closure. A dressing of Dermabond, 4x4, mirna, and a volar splint was applied for patient safety, security, and comfort and secured with an inocencio bandage after the tourniquet was let down noting the hand was warm and well perfused. Next in injected 0.3cc 1%lidocaine plain and 0.7cc Betamethasone 6mg/ml into the right carpal tunnel under sterile conditions. The patient was then awaken from anesthesia and transferred to the recovery room in stable condition.? Complications - none EBL- 0cc Disposition - home in stable conditions luis miguel Ragland PA-C was essential for positioning, retraction, closure and dressing placement [facility] Billing Surgery - Charge Forward: Surgery Billing ([id number] for luis miguel)
[2024-11-01 09:20] VITALS: BP 118/84; PULSE 90; RESP 16; TEMP 36.9; O2SAT 99
--- OUTSIDE RECORDS SUMMARY | 2024-11-01 09:25 | XMS_ITS | Clinical Summary ---
Author Organization [facility] Administrative Offices Address [address] [place] [address] Care Team Providers Care Central Sterilization Technician Name Role Phone Zach Rosen MD Primary Care Provider [phone] Allergies No known active allergies Medications lisinopril [...] Comments Blood Pressure 129/83 05/09/2018 5:40 PM SALES ACCOUNT EXECUTIVE Pulse 95 05/09/2018 5:40 PM SALES ACCOUNT EXECUTIVE Temperature 36.6 C (97.8 F) 05/09/2018 5:40 PM SALES ACCOUNT EXECUTIVE Respiratory Rate 15 05/09/2018 5:40 PM SALES ACCOUNT EXECUTIVE Oxygen Saturation 100% 05/09/2018 5:40 PM SALES ACCOUNT EXECUTIVE Inhaled Oxygen Concentration - - Weight 106.4 kg (234 lb 9.6 oz) 018 11:59 AM SALES ACCOUNT EXECUTIVE Height 180.3 cm (5' 11) 05/09/2018 11: 59 AM SALES ACCOUNT EXECUTIVE Body Mass Index 32.72 05/09/2018 11:59 AM SALES ACCOUNT EXECUTIVE Plan of Treatment Health Maintenance Due Date Last Done Comments DTAP/TDAP/TD VACCINES (1 - Tdap) 1973 COLORECTAL SCREENING 1999 Colorectal Cancer Screening 1999 FIT-DNA Q 3 years 1999 FIT/FOBT Q 1 year 1999 Flex Sig/CT Colonography Q 5 years 1999 PNEUMOCOCCAL VACCINE 50+ YEA RS (1 of 1 - PCV) 2004 ZOSTER VACCINE (1 of 2) 2004 INFLUENZA VACCINE (#1) 2023 03/24/2019, 2017 RSV VACCINE (60+ or ) (1 - 1-dose 75+ series) 2029 Medical Devices Implanted Type Area Electrical Prospecting Supervisor Device Identifier Shelf Expiration Date Model / Serial / Lot Patient Controller Intellis Ptm Implanted:Qty: 1 on 05/09/2018 by Rudolph Calderon DO at [facility] Integral N/A: Back [employer]- NEUROLOGIC TECH [id number] / [id number] N / Description:All Medtronic co mponents are processed on requisition [id number] Patient Rehab Consultant Intellis Rtm Implanted:Qty: 1 on 05/09/2018 by Rudolph Calderon DO at [facility] Integral N/A: Back [employer]- NEUROLOGIC TECH [id number] / [id number] N / Lead Surescan Vectris Mri [id number] - [id number] Implanted:Qty: 1 on 05/09/2018 by Rudolph Calderon DO at [facility] Lead N/A: Back [employer]- NEUROLOGIC TECH 03/24/2022 [id number] / / [id number] Lead Surescan Vectris Mri [id number] - [id number] Implanted:Qty: 1 on 05/09/2018 by Rudolph Calderon DO at [facility] Lead N/A: Back [employer]- NEUROLOGIC TECH 03/24/2022 [id number] / / [id number] Medtronic Intellis Adaptivestim Implanted:Qty: 1 on 05/09/2018 by Rudolph Calderon DO at [facility] N/A: Back [employer]- NEUROLOGIC TECH 03/26/2019 [id number] / [id number] / [id number] H Description:MRI conditional - FULL BODY eligible - 30 minutes of scanning. Pt to bring remote to appt to show coroner technician that he turned into MRI mode-crispin 12/26/18 NO OPEN MRI or 3T Advance Directives For more information, please contact: [phone] * Full Code (Latest Code Status on File) Date Activated Date Inactivated Comments 05/09/2018 12:41 PM 05/09/2018 8:00 PM * Full Code Date Activated Date Inactivated Comments 05/09/2018 12:00 PM 05/09/2018 12:41 PM Care Teams Central Sterilization Technician Relationship Specialty Start Date End Date Zach Rosen MD [address] [address] PCP - General Family Practice 12/21/18
--- OUTSIDE RECORDS SUMMARY | 2024-11-01 09:25 | XMS_ITS | Patient Health Record ---
Author Organization [facility] [place] Address [address] [facility] [place] [address] Care Team Providers Care Senior Air Director Name Role Phone Rudolph Calderon Unavailable [phone] Allergies No Known Allergies Reason For Referral No Information Medications Medication SIG (Take, Route, Frequency, Duration) Notes [...] daily, HS for 30 day(s) 04/03/2020 Not-Taking Social History Tobacco Use: Social History Observation Description Date Details (start date - stop date) Never Smoker NA - NA Tobacco Use/Smoking Question Answer Notes Are you a nonsmoker Problems Problem Type SNOMED Code ICD Code Onset Dates Problem Status W/U Status Risk Notes Problem 65393918 Spondylosis without myelopathy or radiculopathy, lumbosacral region (M47.817) Active confirmed Problem Lumbar radiculopathy (771167494) Lumbar radiculopathy (M54.16) Active confirmed Problem 24940595 Radiculopathy of cervical region (M54.12) Active confirmed Problem 0281942 Radiculopathy of lumbosacral region (M54.17) Active confirmed Problem 579256253 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 confirmed Problem Cervical spondylosis without myelopathy (496049624) Cervical spondylosis without myelopathy (M47.812) Active confirmed Problem 998909252 Cervical spondylosis with radiculopathy (M47.22) Active confirmed Problem 958572545 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) Active confirmed Problem Stenosis of lateral recess of lumbar spine (592859564) 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) Active confirmed Problem Carpal tunnel syndrome (08791024) Carpal tunnel syndrome on both sides (G56.03) Active confirmed Problem Acquired deformity of neck (25775582) 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) Active confirmed Vital Signs Heart Rate 89 /min 11/17/2023 Temperature 98.4 degrees Fahrenheit 11/17/2023 Respiratory Rate 18 /min 11/17/2023 Blood pressure diastolic 88 mm Hg 11/17/2023 Height 71 in 11/17/2023 Blood pressure systolic 148 mm Hg 11/17/2023 Weight 210 lbs 11/17/2023 BMI 29.29 kg/m2 11/17/2023 Encounters Encounter Location Date Provider Diagnosis [facility] [address] [place] [address] 11/17/2023 Rudolph Calderon Radiculopathy of cervical region M54.12 ; Neuroforaminal stenosis of cervical spine M99.81 ; Cervical spondylosis without myelopathy M47.812 ; Failed back surgical syndrome M96.1 and Carpal tunnel syndrome on both sides G56.03 Assessments Encounter Date Diagnosis (ICD Code) Assessment Notes Treatment Notes Treatment Clinical Notes [...] syndrome on both sides (ICD-10 - G56.03) Plan Of Treatment No Information Medications Administered Medication Instructions Date of Administration Dosage Notes [...] and L5/S1 Facet J oint Injections 01/28/2021 Medical (General) History Medical History History ICD Code hypertension Surgical History Surgery Date(Month/Year) tonsillectomy lumbar spine
[2024-11-01] MEDS: LACTATED RINGERS 1,000 ML 30 ML IV CONT (09:37)
--- NOTE | 2024-11-01 10:33 | WPDANESEPPF ---
Anes - Initial Pre Proc Eval Procedure: Operation Date: 11/01/24 10:15 Proposed Procedures p Left Endoscopic Carpal Tunnel Release, Possible Open Carpal Tunnel Release - Mirella Ferguson MD s Right Carpal Tunnel Steroid Injection - Mirella Ferguson MD Date/Time: 11/01/24 10:33 Surgeon: Mirella Ferguson MD Pre Op Diagnosis: Bilateral Carpal Tunnel Syndrome Patient Data Age: 69 Gender: M Height: 1.8 m Weight: 91 kg Last Vital Signs Temp 36.9 C 11/01/24 09:20 Pulse 90 11/01/24 09:20 Resp 16 11/01/24 09:20 BP 118/84 11/01/24 09:20 Pulse Ox 99 11/01/24 09:20 O2 Del Method Room Air 11/01/24 09:20 Allergies Allergy/AdvReac Type Severity Reaction Status Date / Time No Known Allergies Allergy Verified 11/01/24 09:19 Home Medications ?Medication ?Instructions ?Recorded ?Confirmed ?Type acetaminophen 500 mg tablet 1,000 mg (2 x 500 mg) PO TID PRN 07/07/24 11/01/24 Rx (Tylenol Extra Strength) pain #30 tabs tamsulosin 0.4 mg capsule 0.4 mg PO QAM #90 caps 08/14/24 11/01/24 Rx amlodipine 5 mg tablet 5 mg PO QAM 10/17/24 11/01/24 History lisinopril 20 mg tablet 20 mg PO QAM 10/17/24 11/01/24 History tramadol 50 mg tablet 50 mg PO Q6H PRN pain #12 tabs 11/01/24 Rx Patient hx anesthesia problems: none Family hx anesthesia problems: none Results Review: All pre-operative results and documents have been reviewed as part of the pre-operative evaluation. [facility] Past Medical History Medical History Degenerative joint disease of knee Knee pain, right IFG (impaired fasting glucose) Chronic bilateral low back pain Essential hypertension Surgical History Surgical History Hx of bilateral inguinal hernia repair Robotic assisted laparoscopic bilateral inguinal hernia repairs with Bard 3D mid weight mesh by Dr. Lopez on 02/28/24 History of back surgery Social History Social History Smoking status: Never smoker Second hand tobacco smoke exposure: Yes Alcohol intake: never Substance use: never Substance use type: does not use Do You Feel Safe in your Home?: Yes Lack of Transportation: No Lack of Food: Never True Current Housing: I Have Housing Concerned About Future Housing: No Difficulty Paying Gas/Electric Bills: No Difficulty Paying for Meds: No Currently Unemployed: No Education: Bachelor's Degree Difficulty w/ Childcare or Family Care: No Living arrangements: with family Additional living arrangements comments: [employer] Occupation/Education: retired Gender identity (if verbalized by the patient): Male Spiritual care concerns: No Anes - Eval Final PreProcedure Day of Procedure 11/01/24 10:33 Patient weight: overweight Heart: regular rate and rhythm Lungs: clear to auscultation Airway: Mallampati scale class II Neurological: alert and oriented Last oral intake: >/= 8 hours ASA classification: III Emergent: no Anesthetic plan: proceed Anesthesia type and monitoring: general GIVS and standard monitoring Results Review: All pre-operative results and documents have been reviewed as part of the pre-operative evaluation. Informed Consent: The patient's anesthetic plan and its attendant risks and benefits were discussed with the patient/family/POA. Questions were solicited and answers provided to the satisfaction of the patient/family/POA.
[2024-11-01] MEDS: ceFAZolin SODIUM 2 GM/20 ML SW SYRINGE IV PUSH (10:45)
[2024-11-01] MEDS: BETAMETHASONE SOD PHOS/ACETATE 30 MG/5 ML VIAL 4.2 MG I-ARTICULR (10:48)
[2024-11-01] MEDS: LIDO 1%/EPINEPHRINE 1:100,000 10 ML VIAL 4 ML INFILTRATE (10:48)
[2024-11-01 11:05] VITALS: BP 95/67; PULSE 78; RESP 16; O2SAT 98
[2024-11-01 11:15] VITALS: BP 96/68; PULSE 78; RESP 15; O2SAT 97
[2024-11-01 11:25] VITALS: BP 103/73; PULSE 73; RESP 14; O2SAT 99
[2024-11-01 11:35] VITALS: BP 108/74; PULSE 73; RESP 15; O2SAT 98
--- NOTE | 2024-11-01 11:41 | WPDANESPN ---
Anes - Prog Note Post-Op Date/Time: 11/01/24 11:41 Cardiovascular status: normal Respiratory status: normal Airway patency: baseline Mental status: baseline Post-Op hydration status: normal Vital Signs: Last Vital Signs Temp 36.9 C 11/01/24 09:20 Pulse 73 11/01/24 11:25 Resp 14 11/01/24 11:25 BP 103/73 11/01/24 11:25 Pulse Ox 99 11/01/24 11:25 O2 Del Method Room Air 11/01/24 11:25 Pain Score (VAS): 0/10 I/O: Intake & Output 10/31/24 11/01/24 11/01/24 23:59 07:59 15:59 Intake Total 400 Balance 400 Patient Feedback: Patient satisfied with anesthetic care.
== END 2024-11-01 11:51 | disposition home or self-care (01) ==
PROVIDERS: PCP Family Medicine; Visit Provider Plastic Surgery
PROC: 01N54ZZ Release Median Nerve, Percutaneous Endoscopic Approach (ICD-10-PCS; CPT 29848; principal; 2024-11-01 10:15)
PROC: (CPT 29848; 2024-11-01 10:15)
DX: G56.03 Carpal tunnel syndrome, bilateral upper limbs (principal)
CPT/HCPCS: 29848; 20526